=== PATIENT | female | born 1955 | race Caucasian/White ===

== ENCOUNTER 2025-01-03 11:55 | Emergency (ER) | payer MEDICARE, OTHER, SELFPAY ==
--- OUTSIDE RECORDS SUMMARY | 2025-01-03 11:58 | XMS_ITS | Encounter Summary ---
Author Organization [place] Address [address] [place] [address] Care Team Providers Care Spinning Lathe Operator Automatic Name Role Phone Katy Hill MD Primary Care Provider [phone]- [phone] Maldonado Krueger MD Unavailable Kamila Ewing MD Unavai lable Encounter Details Date Type Department Care Team (Late st Contact Info) Description 09/30/2023 [facility] Medical Advice [address] [address] Arcelia Smallwood, RN Social History Tobacco Use Types Packs/Day Years Used Date Smoking Tobacco: Never Smokeless Tobacco: Never Alcohol Use Standard Drinks/Week Comments Not Asked 0 (1 standard drink = 0.6 oz pur e alcohol) PHQ-2 Answer Date Recorded PHQ-2 Score 1 01/08/2023 Adolescent Education Answer Date Record ed Getting School Help Needed Not on file 08/05 Comments No Sex and Gender Information Value Date Recorded Sex Assigned at Not on file 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 Gender Identity Not on file Sexual Orientation Not on file documented as of this encounter Plan of Treatment Not on file documented as of this encounter Visit Diagnoses Not on filedocumented in this encounter Care Teams Spinning Lathe Operator Automatic Relationship Specialty Start Date End Date Katy Hill MD [address] [place] [address] PCP - General Family Medicine 12/04/22 Maldonado Krueger MD [address] [facility] [address] [place] [address] Assigned Heart and Vascular Provider 01/16/23 07/23/24 Kamila Ewing MD [address] [place], [place] [address] Assigned Sleep Provider 04/24/2310/22 documented as of this encounter
--- OUTSIDE RECORDS SUMMARY | 2025-01-03 11:58 | XMS_ITS | Encounter Summary ---
Author Organization [place] Address [address] [facility] 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 Gender Identity Not on file Sexual Orientation Not on file documented as of this encounter Plan of Treatment Not on file documented as of this encounter Visit Diagnoses Not on filedocumented in this encounter Care Teams Rod Buster Relationship Specialty Start Date End Date Katy Hill MD [address] [place] [address] PCP - General Family Medicine 12/04/22 Maldonado Krueger MD [address] [place], [place] [address] Assigned Heart and Vascular Provider 01/16/23 07/23/24 Kamila Ewing MD [address] [place], [place] [address] Assigned Sleep Provider 04/24/2310/22 documented as of this encounter
--- OUTSIDE RECORDS SUMMARY | 2025-01-03 11:58 | XMS_ITS ---
Author Organization [facility] Address [address] [place] [address] Care Team Providers Care Lodging House Keeper Name Role Phone Liz Katy Primary Care Provider [phone] None, No PCP Unavailable Unavailable Yola Ornelas [phone] Allergies Allergen (clinical drug ingredient) Drug/Non Drug Allergy documented on EMR Reaction Allergy Type Onset Date Status Substance with sulfonamide structure and antibacterial mechanism of action (substance) Sulfa Antibiotics rash Drug Allergy Active REASON FOR VISIT Bladder 1 year f/u, Concerns: incontinence, NG, MA Medications Medication SIG (Take, Route, Frequency, Duration) Notes Start Date End Date Status Accu-Chek Guide - as directed In Vitro once daily for 90 days dx E11.9 04/11/2024 Active Amoxicillin-Pot Clavulanate 875-125 MG 1 tablet Orally every 12 hrs for 10 days 04/11/2024 Active Blood Glucose Test - as directed In Vitro for 90 days 02/11/2024 Active Lancet Device - as directed for 90 days Active Cholecalciferol Acti ve Mirtazapine 45 MG 1 tablet at bedtime Orally Once a day Active Folic Acid Active Aspirin 81 MG 1 tablet Orally Once a day Active lamoTRIgine 200 MG 1 tablet Orally Once a day Active buPROPion HCl taking 300 mg per day and 150 mg per day Active Fish Oil 1200 MG 1 capsule Orally Once a day Active Alive Multi-Vitamin - as directed Orally Active Vyzulta 0.024 % 1 drop into affected eye in the evening Ophthalmic Once a day Active Blood Pressure Monitoring Soln - as directed 11/24/2022 Active DULoxetine HCl 60 MG 1 capsule Orally Twice a day takes 2 Active Trospium Chloride ER 60 MG 1 capsule in the morning on an empty stomach or 1 hour before a meal Orally Once a day for 90 days 10/26/2024 Active Benzonatate 100 MG 1 capsule as needed Orally Three times a day 01/11/2024 Active Lisinopril 10 MG TAKE 1 TABLET BY MOUTH EVERY DAY for 90 days Active Atorvastatin Calcium 80 MG 1 tablet Orally Once a day for 90 days Active metFORMIN HCl 1000 MG 1 tablet with a meal Orally Twice daily for 90 days Active Accu-Chek FastClix Lancets - as directed once daily for 90 days dx E11.9 04/11/2024 Active Myrbetriq 50 MG 1 tablet Orally Once a day for 90 days Active Gemtesa 75 MG 1 tablet Orally Once a day for 90 days 12/08/2024 Active Cefdinir 300 MG 1 tab Orally twice daily for 7 days 04/17/2024 Active Social History Tobacco Use: Social History Observation Description Date Details (start date - stop date) Never Smoker NA - NA Sex Assigned At : Social History Observation Description Sex Assigned At Female Tobacco Use/Smoking Question Answer Notes Are you a nonsmoker Tobacco use other than smoking: Question Answer Notes Are you an other tobacco user? No Vital Signs Blood pressure systolic 118 mm Hg 12/08/19 25 Blood pressure diastolic 76 mm Hg 025 Height 68 in 12/08/2024 Weight 236.8 lbs 12/08/2024 BMI 36 kg/m2 12/08/2024 Encounters Encounter Location Date Provider Diagnosis [facility] [address] [place] [address] 12/08/2024 Yola Ornelas Urge incontinence N39.41 Assessments Encounter Date Diagnosis (ICD Code) Assessment Notes Treatment Notes Treatment Clinical Notes Section Notes 12/08/2024 Urge incontinence (ICD-10 - N39.41) She has reported that her leakage has been slightly worsened since last appointment. Still reports significant improvement from initial consult (was soaking through clothing and adult brief/towel/chux on bed at night). Plan is to switch to Gemtesa. If Gemtesa is too expensive patient will continue Myrbetriq and Tropsium. She understands she cannot take Gemtesa and Myrbetriq together. We discussed PTNS and Interstim today. Provided detailed instruction on both of these modalities. Patient was provided with handouts and encouraged to watch [facility] patient education videos on Interstim. Patient is not interested at this time. Creatinine drawn today for shelter drug therapy monitoring. Plan based on result. If she starts Gemtesa she will follow up in 6 weeks. If Gemtesa is too expensive she will follo wup in 1 year. 12/08/2024 Other Time spent on patient care including - review of previous records - preparation for visit - ordering medications, labs or imaging - documenting visit - discussion of care with another health animal care taker if indicated - direct face to face time with patient including obtaining relevant history, physical exam and discussion of plan of care Total time was 40 minutes spent including some or all of above listed required for care of patient talking about diagnosis, treatment and plan of care with the patient as listed in the treatment portion of the note, Vibegron material was printed Plan Of Treatment Medication Medication Name Sig Start Date Stop Date Notes Trospium Chloride ER 60 MG 1 capsule in the morning on an empty stomach or 1 hour before a meal Orally Once a day for 90 days 10/26/2024 Myrbetriq 50 MG 1 tablet Orally Once a day for 90 days Gemtesa 75 MG 1 tablet Orally Once a day for 90 days 12/08/2024 Treatment Notes Assessment Notes Urge incontinence She has reported that her leakage has been slightly worsened since last appointment. Still reports significant improvement from initial consult (was soaking through clothing and adult brief/towel/chux on bed at night). Plan is to switch to Gemtesa. If Gemtesa is too expensive patient will continue Myrbetriq and Tropsium. She understands she cannot take Gemtesa and Myrbetriq together. We discussed PTNS and Interstim today. Provided detailed instruction on both of these modalities. Patient was provided with handouts and encouraged to watch [facility] patient education videos on Interstim. Patient is not interested at this time. Creatinine drawn today for shelter drug therapy monitoring. Plan based on result. If she starts Gemtesa she will follow up in 6 weeks. If Gemtesa is too expensive she will follo wup in 1 year. Other Time spent on patient care including - review of previous records - preparation for visit - ordering medications, labs or imaging - documenting visit - discussion of care with another health animal care taker if indicated - direct face to face time with patient including obtaining relevant history, physical exam and discussion of plan of care Total time was 40 minutes spent including some or all of above listed required for care of patient talking about diagnosis, treatment and plan of care with the patient as listed in the treatment portion of the note, Vibegron material was printed Next Appt Details Follow Up: 6 Weeks, Reason: Provider Name:Yola Ornelas, Chandni 12/12/2025 11:00:00 AM, [address] [facility], [place], [address], Progress Notes * Jo CAPONEJulietaOB:1 12/17/1954 (69 yo F)Acc No.[id number]:12/08/2024 Patient: Wilber BLANCO SUKHJasmin Provider: Chandni Ornelas DNP :1955 A ge:69 Y S ex:Female Date:12/08/2024 Address:[address] [place], [place] [address] Pcp:Katy Hill Subjective: * Chief Complaints: * 1 . Bladder 1 year f/u. 2. Concerns: incontinence. 3. MARY RENEE. * HPI: * General: Jasmin is a pleasant 67 year old female who presents today for urge urinary incontinence follow-up. Current bladder medications are Tropsium and Myrbetriq. Patient reports she has had satisfactory improvement with both medications. She will still experience urge urinary incontinence daily. Leakage amount and frequency is significantly reduced. * ROS: U rinary: Urge urinary incontinence A dmits. S tress urinary incontinence A dmits. U rinary urgency A dmits. U rinary frequency Denies. U rinary hesitancy Denies. F eeling of incomplete bladder emptying Denies. P ain with full bladder Denies. P ad use A dmits. N umber of UTIs in the past year Denies. N umber of UUI Leaks per day 0 -1. N umber of MATHEUS leaks per day 1 time a month. N umber of voids during waking hours: 4 -6. N umber of voids at night: 1 -2.? * Medical History: H yperlipemia, Glaucoma, Hypertensionaucoma, Depression/Anxiety, Arthritis, Bladder infections, Kidney infections, Diabetes Type 2-No insulin. 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 B irth Control: H ysterectomy. S exual Activity N ot currently sexually active. M enopause A t age>46 had total hysterectomy. A bnormal Pap Smear N ever Had One. D enies H/O Colposcopy. B ladder Infections H ad a bladder infection this summer, hasn't had one in some time. C olonoscopy C olonoscopy L ast pap smear date: L ast Pap L ast mammogram date: M ammogram Date B one Density . * OB History: G PAL: G 1P0. P regnancy # 1: 1 994, normal spontaneous vaginal delivery (), Female, 7lb. * Surgical History: T MARICHUY unsure if she has her tubes or ovaries 1999, Tonsilectomy 1959. * Family History: M other: . F ather: , diagnosed with Heart Disease. M aternal Grand Mother: diagnosed with Diabetes. S iblings: diagnosed with Diabetes. D aughter(s): diagnosed with Diabetes. 1 daughter(s) . . Daughter: Diabetes, PCOS Mother: from melanoma of the liver. * Social History: T obacco Use: T obacco Use/Smoking A re you a n onsmoker Tobacco use other than smoking A re you an other tobacco user? N o D rugs/Alcohol: D rugs H ave you used drugs other than those for medical reasons in the past 12 months? N o Caffeine I ntake: 1 -2 cups per day Everyday, soda Do you drink alcohol?: Ocassionally, 2-3 drinks per month. M iscellaneous: E xercise: none. * Medications: T aking metFORMIN HCl 1000 MG Tablet 1 tablet with a meal Orally Twice daily , Taking Lisinopril 10 MG Tablet TAKE 1 TABLET BY MOUTH EVERY DAY , Taking Atorvastatin Calcium 80 MG Tablet 1 tablet Orally Once a day , Taking Benzonatate 100 MG Capsule 1 capsule as needed Orally Three times a day , Taking Myrbetriq 50 MG Tablet Extended Release 24 Hour 1 tablet Orally Once a day , Taking Blood Pressure Monitoring Soln - Kit as directed , Taking DULoxetine HCl 60 MG Capsule Delayed Release Particles 1 capsule Orally Twice a day , Notes to Pharmacist: takes 2, Taking Vyzulta 0.024 % Solution 1 drop into affected eye in the evening Ophthalmic Once a day , Taking Fish Oil 1200 MG Capsule 1 capsule Orally Once a day , Taking Alive Multi-Vitamin - Tablet Chewable as directed Orally , Taking lamoTRIgine 200 MG Tablet 1 tablet Orally Once a day , Taking buPROPion HCl , Notes to Pharmacist: taking 300 mg per day and 150 mg per day, Taking Folic Acid , Taking Aspirin 81 MG Tablet Chewable 1 tablet Orally Once a day , Taking Mirtazapine 45 MG Tablet 1 tablet at bedtime Orally Once a day , Taking Cholecalciferol , Taking Blood Glucose Test - Strip as directed In Vitro , Taking Lancet Device - Miscellaneous as directed , Taking Amoxicillin-Pot Clavulanate 875-125 MG Tablet 1 tablet Orally every 12 hrs , Taking Accu-Chek Guide - Strip as directed In Vitro once daily dx E11.9, Taking Accu-Chek FastClix Lancets - Miscellaneous as directed once daily dx E11.9, Taking Cefdinir 300 MG Capsule 1 tab Orally twice daily , Taking Trospium Chloride ER 60 MG Capsule Extended Release 24 Hour 1 capsule in the morning on an empty stomach or 1 hour before a meal Orally Once a day , Medication List reviewed and reconciled with the patient * Allergies: S ulfa Antibiotics: rash - Allergy. Objective: * Vitals: H t: 68 in, Wt:236.8lbs, BP:118/76mm Hg, BMI:36Index. * Examination: * General Examination: GENERAL APPEARANCE: i n no acute distress, well developed, well nourished. PSYCH: a lert, oriented, judgement and insight good, mood/affect full range, speech clear. Assessment: * Assessment: 1. U rge incontinence - N39.41 (Primary) Plan: * Treatment: 2. O thers Notes: Time spent on patient care including - review of previous records - preparation for visit - ordering medications, labs or imaging - documenting visit - discussion of care with another health animal care taker if indicated - direct face to face time with patient including obtaining relevant history, physical exam and discussion of plan of care Total time was 40 minutes spent including some or all of above listed required for care of patient talking about diagnosis, treatment and plan of care with the patient as listed in the treatment portion of the note, Vibegron material was printed * Preventive Medicine: YOUR PREVENTIVE WELLNESS PLAN: B reast Cancer Screening (Mammogram): My last mammogram was done on: 0 03/01/2022 Negative C ervical Cancer Screening (Pap Smear): My last Pap smear was done on: 0 11/01/1999 Had hysterectomy for a benign lump O steoporosis Screening (Bone Density Measurement): My last bone density was done on: 0 11/01/2019 Normal C olorectal Cancer Screening: Last Done Colonoscopy 0 11/01/2017 Polyps, Repeat: 5yrs D epression Screening: Screening for depression was last done on: 0 07/29/2022 * Follow Up: 6 Weeks * Images: Billing Information: * Visit Code: 56077 Office Visit, Est Pt., Level 5. * Procedure Codes: * DENT ATHLETIC TRAINER Sign off status: Completed true * Provider: Chandni Ornelas DNP Date: 0 12/08/2024 Generated for Albert renee/Farrah/Jeramieitting on: 0 01/03/2025 11:58 AM RESIDENT ATHLETIC TRAINER History and Physical Notes * Examination Category Sub-Category Detail Notes Category Not es *General Examination GENERAL APPEARANCE: in no a cute distress, well developed, well nourished PSYCH: alert, oriented, kemal gement and insight good, mood/affect full range, speech clear
--- OUTSIDE RECORDS SUMMARY | 2025-01-03 11:59 | XMS_ITS ---
Author Organization [facility] Address [address] [place] [address] Care Team Providers Care Driver Messenger Name Role Phone Hill, Katy Primary Care Provider None, No PCP Unavailable Yola Kan [phone] REASON FOR VISIT 12/26 Scheduled Social History Sex Assigned At : Social History Observation Description Sex Assigned At Female Encounters Encounter Location Date Provider Diagnosis [facility] [address] [place] [address] 12/22/2024 Yola Ornelas Plan Of Treatment Next Appt Details Provider Name:Yola Ornelas, 0 12/12/2025 11:00:00 AM, [address] [place], [address], Progress Notes * Lu CAPONEOB:1 12/17/1954 (69 yo F)Acc No.[id number]:12/22/2024 Patient: Wilber ROJOJasmin BEASLEY :1955 A ge:69 Y S ex:Female Address:[address] [place] [address], [address] * true * Date: Generated for Printi ng/Faxing/eTransmitting on: 0 01/03/2025 11:59 AM HYPO DIPPER
--- OUTSIDE RECORDS SUMMARY | 2025-01-03 11:59 | XMS_ITS | Clinical Summary ---
Author Organization [facility] Address [facility] [place] [address] Care Team Providers Care Marketing Communications Coordinator Name Role Phone Ade Louise AQUACULTURE DIRECTOR Unavailable [phone] [facility] Primary Care Provid er Allergies Active Allergy Reactions Criticality Noted Date Comments Sulfa (Sulfonamide Antibiotics) Hives 12/03 Medications ORDER - MEDICATION ORDER COMPOSER She needs a goose-neck lamp with full-spectrum 1 unit 0 2009 Active Fish Oil-DHA-EPA (FISH OIL) 1,200-144-216 mg cap Take 1 capsule by mouth. 0 2016 Active buPROPion (WELLBUTRIN XL) 300 mg Extended-Release tablet Take one tablet daily 0 2017 Active buPROPion (WELLBUTRIN XL) 150 mg Extended-Release tablet 1 tablet daily by mouth 0 2017 Active cholecalciferol (VITAMIN D-3) 2,000 unit capsuleIndications:Vit lu D deficiency Take 1 capsule by mouth once daily. 0 2017 Active blood-glucose meterIndications:Type 2 diabetes mellitus without complication, without long-term current use of insulin (HC) With strips/soluti on/lancets 1 Device 2018 Active ACCU-CHEK FASTCLIX LANCET DRUMIndications:Type 2 diabetes mellitus without complication, without long-term current use of insulin (HC) USE DIRECTED EVERY DAY 100 Each 3 2018 Active mirtazapine (REMERON) 45 mg tabletIndications:Depr ession, major, in remission Take 1 tablet by mouth at bedtime. 30 tablet 2019 Active DULoxetine (CYMBALTA) 60 mg Delayed-release capsuleIndications:Dep ression, major, in remission 2 po q day 60 capsule 1 2019 Active folic acid 1 mg tablet Take 1 mg by mouth 2 times daily. 2021 Active clonazePAM (KLONOPIN) 0.5 mg tablet TAKE 1 TABLET BY MOUTH EVERY DAY NEEDED FOR SEVERE ANXIETY 2021 Active trospium 60 mg Extended-Release capsule TAKE 1 CAPSULE BY MOUTH EVERY DAY IN THE MORNING 1 HOUR BEFORE A MEAL ON AN EMPTY STOMACH 2021 Active mirabegron EXTENDED-release (Myrbetriq) 50 mg tablet 1 tablet Orally Once a day for 30 days 2021 Active fluconazole (Diflucan) 200 mg tabletIndications:Onyc homycosis Take 1 Tablet (200 mg) by mouth once weekly. 5 Tablet 2 2023 Active atorvastatin (LIPITOR) 80 mg tabletIndications:Type 2 diabetes mellitus without complication, without long-term current use of insulin (HC),Pure hypercholesterolemia Take 1 Tablet (80 mg) by mouth at bedtime. For Cholesterol. 90 Tablet 2 2024 Active blood sugar diagnostic (Blood Glucose Test) stripIndications:Type 2 diabetes mellitus without complication, without long-term current use of insulin (HC) Dispense item covered by pt ins. E11.9 NIDDM type II - Test 1 time/day 100 Each 2 2024 Active lisinopriL (PRINIVIL; ZESTRIL) 10 mg tabletIndications:Prim papo hypertension Take 1 Tablet (10 mg) by mouth once daily. For blood pressure. 90 Tablet 2 2024 Active metFORMIN (GLUCOPHAGE) 1,000 mg tabletIndications:Type 2 diabetes mellitus without complication, without long-term current use of insulin (HC) Take 1 Tablet (1,000 mg) by mouth two times daily with meals. 180 Tablet 2 2024 Active Additional Information Patient taking differently:1,000 mg Oral TWICE DAILY WITH MEALS,Patient checked for extended release and her Rx did not state XR, Reported on 12/27/2024 lamoTRIgine 200 mg tablet Take 1 Tablet (200 mg) by mouth once daily. Take one tablet once daily 2024 Active Vyzulta 0.024 % dropIndications:Low-te nsion glaucoma of left eye, mild stage PLACE 1 DROP ON LEFT EYE EVERY EVENING 7.5 mL 1 2024 Active fluticasone (50 mcg per actuation) nasal solution (FLONASE) SPRAY TWICE IN EACH NOSTRIL ONCE TO TWICE DAILY 2023 Active latanoprostene bunod (Vyzulta) 0.024 % dropIndications:Low-te nsion glaucoma of left eye, mild stage Place into left eye. 7.5 mL 1 12/07 Discontinued Active Problems Problem Noted Date Diagnosed Date Normal tension glaucoma of left eye, moderate st age 0402/23/2022 Bilateral pseudophakia 11/16/2018 Adenomatous colon polyp 11/03/2017 Overview (11/03/2017): Colonoscopy 11/2017 polyps, repeat in 5 years Presbyopia 08/26/2017 Hyperopic astigmatism of left eye 08/26/2017 Regular astigmatism of right eye 08/26/2017 Arthritis of right knee 07/21/2015 Overview (07/21/2015): Right knee pain, cortisone by Dr. Meade Jul 2015. 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 Stopped the actos due to health risks associated with medication Nov 2024: on Metformin only. Vitreous degeneration 10/07/2007 Pure hypercholesterolemia 06/17/2007 ALLERGY UNSPECIFIED 04/02/2005 DEPRESSION 07/23/2003 Overview (12/31/2021): Overview: Depressive Disorder, Not Elsewhere Classified Depressive disorder, not elsewhere classified ACTINIC - KERATOSIS Resolved Problems Problem Noted Date Diagnosed Date Resolved Date Major depressive disorder, r ecurrent episode, moderate 10/07/2012 12/13/2012 Major depressive disorder, r ecurrent episode, severe, without mention of psychotic behavior 09/27/2012 10/07/2012 Major depressive disorder, r ecurrent episode, severe, without mention of psychotic behavior 09/08/2012 10/07/2012 Major depressive disorder, r ecurrent episode, unspecified 05/18/2007 10/07/2012 SINUSITIS 09/16/2004 10/30/2010 Encounters Date Type Department Care Team Description 01/03/2025 Nurse Triage [facility] Centralized Nurse Triage Clinic, [facility] Head Injury 12/28/2024 1:30 PM THERMAL CUTTING TRACER MACHINE OPERATOR - 12/28/2024 11:59 PM THERMAL CUTTING TRACER MACHINE OPERATOR Hospital Encounter [facility] [place] [address] [place] [address] Zander Meade MD Martinez, Nathan M, PT 12/27/2024 6:25 PM THERMAL CUTTING TRACER MACHINE OPERATOR Office Visit [facility] [place] [address] [place] [phone] Latisha Lang MD Head Injury 12/27/2024 Travel 12/19/2024 1:20 PM THERMAL CUTTING TRACER MACHINE OPERATOR - 12/19/2024 11:59 PM THERMAL CUTTING TRACER MACHINE OPERATOR Hospital Encounter [facility] [place] [address] [place] [address] Zander Meade MD Martinez, Nathan M, PT 12/19/2024 Travel 12/13/2024 3:29 PM THERMAL CUTTING TRACER MACHINE OPERATOR - 12/13/2024 11:59 PM THERMAL CUTTING TRACER MACHINE OPERATOR Hospital Encounter [facility] [place] [address] [place] [address] Zander Meade MD Martinez, Nathan M, PT 12/13/2024 Travel 12/05/2024 1:10 PM THERMAL CUTTING TRACER MACHINE OPERATOR - 12/05/2024 11:59 PM THERMAL CUTTING TRACER MACHINE OPERATOR Hospital Encounter [facility] [place] [id number] [place] [phone] Zander Meade MD Martinez, Nathan M, PT Chronic pain of left knee 12/05/2024 Refill [facility] [address] [place] [address] Hans Rojo, OD Refill Request (Vyzulta) 12/05/2024 Travel 12/02/2024 4:15 PM THERMAL CUTTING TRACER MACHINE OPERATOR Ancillary Procedure [facility] [id number] [place] [phone] 12/02/2024 Travel 11/27/2024 4:00 PM THERMAL CUTTING TRACER MACHINE OPERATOR Ancillary Procedure [facility] [address] [place] [address] 11/27/2024 3:30 PM THERMAL CUTTING TRACER MACHINE OPERATOR Office Visit [facility] [address] [place] [address] Zander Meade MD Musculoskeletal Problem (Follow-up LEFT Knee Injury DOI: 09/26/2024/Review X-Ray) 11/27/2024 Travel 11/16/2024 1:00 PM THERMAL CUTTING TRACER MACHINE OPERATOR Office Visit [facility] [address] [place] [address] Hans Rojo, OD Follow Up (4 Month IOP Ck) 11/16/2024 Travel 11/08/2024 11:00 AM THERMAL CUTTING TRACER MACHINE OPERATOR Procedure Only [facility] [address] [place] [address] Testing (Visual field and results) 11/08/2024 Travel 11/03/2024 1:00 PM THERMAL CUTTING TRACER MACHINE OPERATOR Office Visit [facility] [address] [place] [address] Zander Meade MD Establish Care (Establish Care with Dr Zander Meade) 11/03/2024 Travel 10/17/2024 11:30 AM THERMAL CUTTING TRACER MACHINE OPERATOR Office Visit [facility] [address] [place] [address] Arcelia Ha, DPM Foot Problem (F/U bilateral toenail fungus-some improvement) 10/17/2024 Travel from Last 3 Months Immunizations Name Administration Dates Next Due COVID-19 vaccine (Moderna Gagan jan 50mcg/0.25mL) PF, MDV 03/20/2022,09/15/2021 Influenza, High-dose Quadrivalent Inactivated ,07/07/2022 Influenza, IIV3 (Age >=3 years) 08/04/2013,08/31 Influenza, IIV4 08/11/2017,09/02/2016 Influenza, IIV4 (=>6mos) MDV 08/12/2018 Influenza, Inactivated AIIV4 (Age 65+ Years) Preserv Free 08/08/2021,08/12/2020 Influenza, Inactivated IIV3 (Age 65+ Years) Preserv Free 10/17/2019 Influenza, RIV3 (Age =>18 Years) 07/19/2015 Pneumococcal Poly,23-Valent (Pneumovax) 08/12/20 20 Pneumococcal conj 13-Valent (Prevnar 13) 019 Td (Age >=7 Years) 09/18/2004,07/23/2003 Tdap 06/30/2013 Zoster (Shingrix-RZV, recombinant) 08/03/2022, Family History Medical History Relation Name Comments Diabetes Daughter Heart Disease Father Heart Disease Maternal Grandfather Diabetes Maternal Grandmother Melanoma Mother of melanom a of Liver Genetic Other MGM: DM~PGM: DM ~Father: NH in mid 40s first dx, dec in 60s~Mother: melanoma dec in 50s of metastatic dz/MGM: DM~PGM: DM~Father: NH in mid 40s first dx, dec in 60s~Mother: melanoma dec in 50s of metastatic dz~no family hx of problmes with anesthesia Diabetes Paternal Grandmother Diabetes Sister Relation Name Status Comments Daughter Alive Father Maternal Grandfather Maternal Grandmother Mother Other Paternal Grandfather Paternal Grandmother Sister Alive Social History Tobacco Use Types Packs/Day Years Used Date Smoking Tobacco: Never Smokeless Tobacco: Never Tobacco Cessation:Counseling Given: Yes Alcohol Use Standard Drinks/Week Comments Yes 0 (1 standard drink = 0.6 oz pur e alcohol) occasional PHQ-2 Answer Date Recorded PHQ-2 TOTAL SCORE 0 11/03/2024 Social Connections Answer Date Recorded Do you often feel lonely or isolated from those around you? 0 11/03/2024 Financial Resource Strain Answer Date R ecorded Difficulty of Paying Living Expenses 3 11/03/2024 Difficulty of Paying Living Expenses Not on file 11/03/2024 Food Insecurity Answer Date Recorded Do you worry your food will run out before you are able to buy more? 1 11/03/2024 Transportation Needs Answer Date Record ed Does lack of transportation keep you from medica l appointments? 1 11/03/2024 Does lack of transportation keep you from work, meetings or getting things that you need? 1 11/03/2024 Housing Stability Answer Date Recorded What is your housing situation today? 1 11/03/2024 Utilities Answer Date Recorded Do you have trouble paying f or utilities (for example, heat, electricity, water, phone)? 1 11/03/2024 Comments No Sex and Gender Information Value Date Recorded Sex Assigned at Not on file Legal Sex Female 5:29 AM THERMAL CUTTING TRACER MACHINE OPERATOR Gender Identity Not on file Sexual Orientation Not on file Obstetrics History Last Filed Vital Signs Vital Sign Reading Time Taken Comments Blood Pressure 135/69 12/27/2024 6:27 PM THERMAL CUTTING TRACER MACHINE OPERATOR Pulse 78 12/27/2024 6:27 PM THERMAL CUTTING TRACER MACHINE OPERATOR Temperature 36.6 C (97.9 F) 12/27/2024 6:27 PM THERMAL CUTTING TRACER MACHINE OPERATOR Respiratory Rate 14 12/27/2024 6:27 PM THERMAL CUTTING TRACER MACHINE OPERATOR Oxygen Saturation 97% 12/27/2024 6:27 PM THERMAL CUTTING TRACER MACHINE OPERATOR Inhaled Oxygen Concentration - - Weight 108.1 kg (238 lb 6.4 oz) 11/03/2024 1:07 PM THERMAL CUTTING TRACER MACHINE OPERATOR Height 172.7 cm (5' 8) 11/03/2024 1:07 PM THERMAL CUTTING TRACER MACHINE OPERATOR Body Mass Index 36.25 11/03/2024 1:07 PM THERMAL CUTTING TRACER MACHINE OPERATOR Plan of Treatment Upcoming Encounters Date Type Department Care Team (Late st Contact Info) Description 01/10/2025 12:45 PM CDT Appointment [facility] [place] [address] [place], [place] [phone] [place] [address] [place], [place] [phone] 01/16/2025 11:30 AM CDT Office Visit [facility] [address] [place] [phone] Arcelia Ha, DPM [address] [place] [address] 01/17/2025 12:45 PM CDT Appointment [facility] [place] [address] [place], [place] [phone] [place] [address] [place] [address] 01/24/2025 12:45 PM CDT Appointment [facility] [place] [address] [place], [place] [phone] [place] [address] [place] [phone] 02/01/2025 11:10 AM CDT Office Visit [facility] [address] [place] [address] Zander Meade MD [address] [place] [address] 03/15/2025 1:00 PM CDT Office Visit [facility] [address] [place] [address] [place] [address] [place] [address] Health Maintenance Due Date Last Done Comments RSV vaccine for adults or (1 - Risk 60-74 years 1-dose series) 2013 Colonoscopy through age 75 11/02/202211/02, 11/02/2017, 11/02/2017 Medicare Wellness for age 65+ 03/26/2023 03/25/2022, 10/17/2019 Mammogram for age 45-75 05/05/2023 05/05/20, 09/18/2019, 04/23/2017, Additional history exists Tetanus booster 06/30/2023 06/30/2013, 09/01, 07/23/2003 COVID-19 vaccine series ( season) 2024 08/10/2023, 07/09/2022, 03/20/2022, Additional history exists Influenza for age 65+ 07/02/2024 08/10/2023 , 07/07/2022, 08/08/2021, Additional history exists BMI (ht and wt on same day) for age 18+ 11/03/2025 11/03/2024, 03/25/2022, 10/17/2019, Additional history exists Depression screening for age 12+ 11/03/2025 11/03/2024, 03/25/2022, 08/12/2020, Additional history exists Lipids for age 45-75 09/22/2026 09/22/2021, 11/29/2020, 08/12/2020, Additional history exists Tdap Completed 06/30/2013 Hepatitis C screening for ag e 18-79 Completed 06/16/2019 DEXA/DXA scan for age 65+ Completed 09/12/2019 Pneumococcal series for age 50+ Completed , 06/16/2019 Zoster (shingles) series for age 50+ Completed 08/03/2022, 03/20/2022 Procedures Procedure Name Priority Date/Time Associated Diagnosis Comments MR HEAD BRAIN ORBITS WWO Routine 12/02/2024 5:01 PM THERMAL CUTTING TRACER MACHINE OPERATOR Visual field defect of left eye XR KNEE 3 VIEWS LEFT Routine 11/27/2024 3:46 PM THERMAL CUTTING TRACER MACHINE OPERATOR Chronic pain of left knee XR MAMMO BILAT SCREENING Routine 05/05/2022 1:03 PM CDT Visit for screening mammogram LIPID PANEL Routine 09/22/2021 11:59 AM THERMAL CUTTING TRACER MACHINE OPERATOR Pure hypercholesterolemia XR DXA BONE DENSITY 2 SITES AXIAL Routine 09/12/2019 1:38 PM THERMAL CUTTING TRACER MACHINE OPERATOR Post-menopausal ANTI HCV Routine 06/16/2019 1:20 PM CDT Encounter for hepatitis C screening test for low risk patient COLONOSCOPY 11/02/2017 12:49 PM THERMAL CUTTING TRACER MACHINE OPERATOR from Last 3 Months or Most Recently Relevant to Health Maintenance Results * MR HEAD BRAIN ORBITS WWO (12/02/2024 5:01 PM THERMAL CUTTING TRACER MACHINE OPERATOR) Anatomical Region Laterality Modality HEAD Magnetic Resonan ce 12/02/2024 5:01 PM THERMAL CUTTING TRACER MACHINE OPERATOR Impressions 12/04/2024 9:27 AM THERMAL CUTTING TRACER MACHINE OPERATOR HEAD MRI: 1. No significant change since 12/12/2012. No findings to explain patient's symptoms or acute intracranial pathology. 2. Stable mild chronic small vessel ischemic disease and generalized brain parenchymal volume loss. ORBIT MRI: 1. Normal MRI of the orbits. Narrative 12/04/2024 9:27 AM THERMAL CUTTING TRACER MACHINE OPERATOR For Patients: As a result of the Century Cures Act, medical imaging exams and procedure reports are released immediately into your electronic medical record. You may view this report before your referring provider. If you have questions, please contact your health care provider. EXAM: MR HEAD BRAIN ORBITS WWO LOCATION: [facility] [place] [facility] DATE: 12/02/2024 INDICATION: Visual Field Defect Of Left Eye COMPARISON: Brain MRI 12/12/2012 CONTRAST: Clariscan 20ml TECHNIQUE: 1) Routine multiplanar multisequence head MRI without and with intravenous contrast. 2) Dedicated high-resolution multiplanar multisequence MRI of the orbits without and with intravenous contrast. FINDINGS: INTRACRANIAL CONTENTS: No acute or subacute infarct. No mass, acute hemorrhage, or extra-axial fluid collections. Scattered nonspecific T2/FLAIR hyperintensities within the cerebral white matter most consistent with mild chronic microvascular ischemic change. Chronic lacunar infarct in the head of the left caudate nucleus. Mild generalized cerebral atrophy. No hydrocephalus. The cerebellar tonsils extend up to 6 mm below the level the foramen magnum and demonstrate slight peg-shaped morphology, consistent with a Chiari I malformation, unchanged since 12/12/2012. No pathologic contrast enhancement. SELLA: No abnormality accounting for technique. OSSEOUS STRUCTURES/SOFT TISSUES: Normal marrow signal. The major intracranial vascular flow voids are maintained. ORBITS: Dedicated MRI of the orbits was performed. Bilateral pseudophakia. Normal morphology of the globes. Symmetrical extraocular musculature without thickening/enlargement. The intraorbital, canalicular and prechiasmatic optic nerve segments are normal in size and signal intensity bilaterally. The optic chiasm and proximal optic tracts are unremarkable. No localized inflammation of the intraconal or extraconal orbital fat. Normal lacrimal glands. No intraorbital mass or pathologic intraorbital enhancement. SINUSES/MASTOIDS: Mild mucosal thickening scattered about the paranasal sinuses. No middle ear or mastoid effusion. Procedure Note Toni Izquierdo MD - 12/04/2024 For Patients: As a result of the 21st Century Cures Act, medical imagingexams and procedure reports are released immediately into your electronicmedical record. You may view this report before your referring provider.If you have questions, please contact your health care provider. EXAM: MR HEAD BRAIN ORBITS [facility] LOCATION: [facility] [place] DATE: 12/02/2024 INDICATION: Visual Field Defect Of Left Eye COMPARISON: Brain MRI 12/12/2012 CONTRAST: Clariscan 20ml TECHNIQUE: 1) Routine multiplanar multisequence head MRI without and with intravenouscontrast. 2) Dedicated high-resolution multiplanar multisequence MRI of the orbitswithout and with intravenous contrast. FINDINGS: INTRACRANIAL CONTENTS: No acute or subacute infarct. No mass, acutehemorrhage, or extra-axial fluid collections. Scattered nonspecificT2/FLAIR hyperintensities within the cerebral white matter most consistentwith mild chronic microvascular ischemic change. Chronic lacunar infarctin the head of the left caudate nucleus. Mild generalized cerebralatrophy. No hydrocephalus. The cerebellar tonsils extend up to 6 mm belowthe level the foramen magnum and demonstrate slight peg-shaped morphology,consistent with a Chiari I malformation, unchanged since 12/12/2012. Nopathologic contrast enhancement. SELLA: No abnormality accounting for technique. OSSEOUS STRUCTURES/SOFT TISSUES: Normal marrow signal. The majorintracranial vascular flow voids are maintained. ORBITS: Dedicated MRI of the orbits was performed. Bilateral pseudophakia.Normal morphology of the globes. Symmetrical extraocular musculaturewithout thickening/enlargement. The intraorbital, canalicular andprechiasmatic optic nerve segments are normal in size and signal intensitybilaterally. The optic chiasm and proximal optic tracts are unremarkable.No localized inflammation of the intraconal or extraconal orbital fat.Normal lacrimal glands. No intraorbital mass or pathologic intraorbitalenhancement. SINUSES/MASTOIDS: Mild mucosal thickening scattered about the paranasalsinuses. No middle ear or mastoid effusion. IMPRESSION: HEAD MRI: 1. No significant change since 12/12/2012. No findings to explainpatient's symptoms or acute intracranial pathology. 2. Stable mild chronic small vessel ischemic disease and generalizedbrain parenchymal volume loss. ORBIT MRI: 1. Normal MRI of the orbits. us Hans Darline Rojo OD MR Final Resu lt * XR KNEE 3 VIEWS LEFT (11/27/2024 3:46 PM THERMAL CUTTING TRACER MACHINE OPERATOR) Anatomical Region Laterality Modality KNEES, KNEE L Computed Radiogr aphy 11/28/2024 9:27 AM THERMAL CUTTING TRACER MACHINE OPERATOR Impressions 11/28/2024 9:27 AM THERMAL CUTTING TRACER MACHINE OPERATOR Osteoarthritis, as above Dictated by Jasson Barone MD @ 11/28/2024 9:27:09 AM (Electronically Signed) Narrative 11/28/2024 9:27 AM THERMAL CUTTING TRACER MACHINE OPERATOR For Patients: As a result of the 21st Century Cures Act, medical imaging exams and procedure reports are released immediately into your electronic medical record. You may view this report before your referring provider. If you have questions, please contact your health care provider. INDICATION: Chronic left knee pain TECHNIQUE: Weightbearing AP and lateral views of the left knee as well as a sunrise view COMPARISON: None FINDINGS: No joint effusion. Mild osteoarthritis at the lateral compartment and patellofemoral joint. No chondrocalcinosis. Procedure Note Jasson Barone MD - 11/28/2024 For Patients: As a result of the Cures Act, medical imagingexams and procedure reports are released immediately into your electronicmedical record. You may view this report before your referring provider.If you have questions, please contact your health care provider. INDICATION: Chronic left knee pain TECHNIQUE: Weightbearing AP and lateral views of the left knee as well as a sunriseview COMPARISON: None FINDINGS: No joint effusion. Mild osteoarthritis at the lateral compartment andpatellofemoral joint. No chondrocalcinosis. IMPRESSION: Osteoarthritis, as above Dictated by Jasson Barone MD @ 11/28/2024 9:27:09 AM (Electronically Signed) us Zander Meade MD GENERAL IMAGING Final Res ult * XR MAMMO BILAT SCREENING (05/05/2022 1:03 PM CDT) Anatomical Region Laterality Modality BREASTS, Breast Left, Breast Right Bilateral Mammography Impressions 05/06/2022 3:58 PM CDT There is no radiographic evidence for malignancy. Recommend annual mammograms. MAMMOGRAM ASSESSMENT: ACR 1 Negative PATIENTS: You will also receive a letter with your examination results in an easy to read format. If you have questions about your results, please contact your referring provider. Narrative 05/06/2022 3:58 PM CDT For Patients: As a result of the Cures Act, medical imaging exams and procedure reports are released immediately into your electronic medical record. You may view this report before your referring provider. If you have questions, please contact your health care provider. XR MAMMO BILAT SCREENING [[id number]] CLINICAL HISTORY: This is an asymptomatic 66 y.o. patient. INDICATION FOR EXAM: Mammogram Screening. TECHNIQUE: CC & MLO views were obtained. This study was evaluated with the assistance of Computer-Aided Detection. COMPARISON FILM: Yes 09/18/19 [employer] 04/23/17 [employer] FINDINGS: The breasts have scattered areas of fibroglandular density. There are no dominant masses, suspicious micro calcifications or areas of architectural distortion. us Dom Roca MD MAMMO Final Resul t * (ABNORMAL) LIPID PANEL (09/22/2021 11:59 AM THERMAL CUTTING TRACER MACHINE OPERATOR) CHOLESTEROL,TOTAL 201(H) 100 - 199 mg/dL 09/22/2021 10:24 PM THERMAL CUTTING TRACER MACHINE OPERATOR [facility] TRIGLYCERIDES 212(H) <150 mg/dL 09/22/2021 10:24 PM THERMAL CUTTING TRACER MACHINE OPERATOR [facility] HDL CHOLESTEROL 49 >40 mg/dL 10:24 PM THERMAL CUTTING TRACER MACHINE OPERATOR [facility] NON-HDL CHOLESTEROL 152(H) <145 mg/dl 09/22/2021 10:24 PM THERMAL CUTTING TRACER MACHINE OPERATOR [facility] CHOL/HDL RATIO 4.10 <4.50 09/22/2021 10:24 PM THERMAL CUTTING TRACER MACHINE OPERATOR [facility] LDL CHOLESTEROL 110 <=130 mg/dL 09/22/2021 10:24 PM THERMAL CUTTING TRACER MACHINE OPERATOR [facility] VLDL CHOLESTEROL 42(H) <=30 mg/dL 09/22/2021 10:24 PM THERMAL CUTTING TRACER MACHINE OPERATOR [facility] PROVIDER ORDERED STATUS RANDOM 09/22/2021 10:24 PM THERMAL CUTTING TRACER MACHINE OPERATOR [facility] Blood BLOOD SPECIMEN / Unknown Butterfly / Unknown 09/22/2021 11:59 AM THERMAL CUTTING TRACER MACHINE OPERATOR 09/22/2021 11:59 AM THERMAL CUTTING TRACER MACHINE OPERATOR Sherlyn Weston MD CHEMISTRY Final Resul t [facility] 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 Sherlyn Weston MD DEXA Final Resul t * ANTI HCV (06/16/2019 1:20 PM CDT) HEPATITIS C ANTIBODY Non-React wilson Non-React wilson 06/16/2019 9:34 PM CDT [facility] [place] [facility] Comment:Antibodies to HCV no t detected; does not exclude the possibility of exposure to HCV. Blood BLOOD SPECIMEN / Unknown Butterfly / Unknown 06/16/2019 1:20 PM CDT 06/16/2019 1:20 PM CDT us Sherlyn Weston MD SEND OUTS Final Resul t [facility] [address] [place] [address], [place] * COLONOSCOPY (11/02/2017 12:49 PM THERMAL CUTTING TRACER MACHINE OPERATOR) 11/02/2017 12:4 9 PM THERMAL CUTTING TRACER MACHINE OPERATOR Narrative Transcriptions Magdi Henry MD - 11/02/2017 2:22 PM CST Patient Name: Jasmin Sanchez Puneet Procedure Date: 11/02/2017 Gender: Female Date of : 1955 Admit Type: Outpatient Procedure: Colonoscopy Proceduralist: Magdi Henry MD , Chandni Hager (Nurse) Referring MD: Sofia Ceballos Indications/Pre-Op Diagnosis: This is the patient's first colonoscopy, Positive fecal immunochemical test Medications: Fentanyl 100 micrograms IV, Midazolam 2 mgIV, The level of sedation administered wasmoderate Procedure Description: The patient had risks, benefits and alternatives explained to andgave informed consent. The patient had a stable cardiopulmonary status and judged an adequate candidate for conscious sedation. The [id number] was passed through the anus and advanced tothe cecum, identified by appendiceal orifice and ileocecal valve. The colonoscopy was performed without difficulty. The patient toleratedthe procedure well. The quality of the bowel preparation was good. The ileocecal valve, appendiceal orifice, and rectum were photographed. Complications: No immediate complications. Estimated Blood Loss & Specimen: Estimated blood loss: none. Specimen collected - Yes and sent to Laboratory Findings: The perianal and digital rectal examinations were normal. A 3 mm polyp was found in the ascending colon. The polyp was sessile. The polyp was removed with a cold biopsy forceps. Resection and retrieval were complete. A 5 mm polyp was found in the transverse colon. The polyp wassessile. The polyp was removed with a hot snare. Resection and retrieval were complete. A 3 mm polyp was found in the rectum. The polyp was sessile. Thepolyp was removed with a cold biopsy forceps. Resection and retrieval were complete. Internal hemorrhoids were found during retroflexion. The hemorrhoids were small. The exam was otherwise without abnormality on direct and retroflexion views. Impressions/Post-Op Diagnosis: - One 3 mm polyp in the ascending colon, removed with a cold biopsy forceps. Resected and retrieved. - One 5 mm polyp in the transverse colon, removed with a hot snare. Resected and retrieved. - One 3 mm polyp in the rectum, removed with a cold biopsy forceps. Resected and retrieved. - Internal hemorrhoids. - The examination was otherwise normal on direct and retroflexionviews. Recommendation: - Patient has a contact number available for emergencies. The signsand symptoms of potential delayed complications were discussed with the patient. Return to normal activities tomorrow. Written discharge instructions were provided to the patient. - Resume previous diet. - Continue present medications. - Await pathology results. - Repeat colonoscopy is recommended. The colonoscopy date will be determined after pathology results from today's exam become available for review. Moderate Sedation: Moderate (conscious) sedation was administered by the endoscopy nurse and supervised by the endoscopist. The following parameters were monitored: oxygen saturation, heart rate, respiratory rate, blood pressure, adequacy of pulmonary ventilation and reponse to care. Please refer to the patien'ts medical record flowsheets and nursing notes for moderate sedation details. Total physician intraservice time was 24 minutes. Magdi Henry MD 11/02/2017 2:21:52 PM This report has been signed electronically. Note Initiated On: 11/02/2017 12:49 PM Scope In: 1:54:35 PM Scope Withdrawal Time 0 hours 13 minutes 30 seconds Scope Out: 2:17:14 PM us Magdi Henry MD PROCEDURE ORD Final Res ult from Last 3 Months or Most Recently Relevant to Health Maintenance Insurance MEDICA SELECT SOLUTION MEDICARE [place] ONLY MEDICARE PART B HB ONLY [employer] INS Advance Directives * Full Code (Latest Code Status on File) Date Activated Date Inactivated Comments 12/12/2012 11:03 PM 12/13/2012 8:13 PM * Full Code Date Activated Date Inactivated Comments 11/04/2012 6:20 AM 11/05/2012 2:07 AM * Full Code Date Activated Date Inactivated Comments 10/31/2012 7:43 AM 11/03/2012 2:30 AM * Full Code Date Activated Date Inactivated Comments 10/27/2012 6:12 AM 10/28/2012 2:07 AM * Full Code Date Activated Date Inactivated Comments 10/24/2012 6:09 AM 10/27/2012 2:28 AM Care Teams Marketing Communications Coordinator Relationship Specialty Start Date End Date [address] [address] PCP - General 09/13/23 Ade Louise CNS Psychiatry 02/24/13
--- OUTSIDE RECORDS SUMMARY | 2025-01-03 11:59 | XMS_ITS | Clinical Summary ---
Author Organization [facility] Address [address] [place] [address] Care Team Providers Care Snag Grinder Name Role Phone Katy Hill MD Primary Care Provider [phone] Allergies Active Allergy Reactions Criticality Noted Date Comments Sulfa Antibiotics 02/17/2002 Medications buPROPion (WELLBUTRIN XL) 150 MG 24 hr tablet Take 1 tablet by mouth daily at 2 pm 12/17/2022 Active buPROPion (WELLBUTRIN XL) 300 MG 24 hr tablet TAKE 1 TABLET BY MOUTH ONCE A DAY. TAKE WITH 150 TABLET TO EQUAL A TOTAL OF 450MG 09/30/2022 Active DULoxetine (CYMBALTA) 60 MG capsule Take 120 mg by mouth daily 12/24/2022 Active lamoTRIgine (LAMICTAL) 200 MG tablet Take 1 tablet by mouth daily at 2 pm 12/17/2022 Active atorvastatin (LIPITOR) 40 MG tablet 11/25/2022 Active metFORMIN (GLUCOPHAGE) 500 MG tablet 12/24/2022 Activ e VYZULTA 0.024 % SOLN ophthalmic solution PLACE INTO LEFT EYE ONCE DAILY DIRECTED. 09/28/2022 Active folic acid (FOLVITE) 1 MG tablet Take 1 tablet by mouth 2 times daily 01/06/2023 Active aspirin (ASA) 81 MG EC tablet Aspirin Acti ve Magnesium Hydroxide (DULCOLAX PO) Dulcolax Active [place]-3 Fatty Acids (FISH OIL PO) Active multivitamin w/minerals (MULTI-VITAMIN) tablet Take 1 tablet by mouth daily Active lisinopril (ZESTRIL) 20 MG tablet Take 20 mg by mouth daily Active mirabegron (MYRBETRIQ) 50 MG 24 hr tablet Take 50 mg by mouth daily Active TROSPIUM CHLORIDE PO Active mirtazapine (REMERON) 45 MG tablet Take 45 mg by mouth At Bedtime Active CLONAZEPAM PO Take 0.5 mg by mouth 2 times daily as needed for anxiety Active Active Problems Problem Noted Date Diagnosed Date Essential hypertension, benign Depressive disorder, not elsewhere classified Immunizations Name Administration Dates Next Due Flu 65+ (Fluad) 10/17/2019 Influenza (IIV3) PF 08/04/2013,08/31/2012 Influenza Vaccine 65+ (FLUAD) 08/08/2021, 020 Influenza Vaccine 65+ (Fluzone HD) 07/07/2022 Influenza Vaccine >6 months,quad, PF 08/11/2017, 09/02/2016 Influenza Vaccine Trivalent (FluBlok) 07/19/2015 Influenza Vaccine, 6+MO IM ( QUADRIVALENT W/PRESERVATIVES) 08/12/2018 Pneumo Conj 13-V (2010&after) 06/16/2019 Pneumococcal 23 valent 08/12/2020 TDAP (Adacel,Boostrix) 06/30/2013 Td (Adult), Adsorbed 09/18/2004,07/23/2003 Zoster recombinant adjuvanted (SHINGRIX) 022,03/20/2022 Social History Tobacco Use Types Packs/Day Years Used Date Smoking Tobacco: Never Smokeless Tobacco: Never Tobacco Cessation:Counseling Given: Not Answered Alcohol Use Standard Drinks/Week Comments Not Asked 0 (1 standard drink = 0.6 oz pur e alcohol) PHQ-2 Answer Date Recorded PHQ-2 Score 1 01/08/2023 Adolescent Education Answer Date Record ed Getting School Help Needed Not on file 08/05 Comments No Sex and Gender Information Value Date Recorded Sex Assigned at Not on file Legal Sex Female 3:25 AM APARTMENT MAINTENANCE SUPERVISOR Gender Identity Not on file Sexual Orientation Not on file Last Filed Vital Signs Vital Sign Reading Time Taken Comments Blood Pressure 135/84 04/19/2023 11:04 AM CDT Pulse 82 04/19/2023 11:04 AM CDT Temperature 36.7 C (98.1 F) 12/03/2004 7:06 PM APARTMENT MAINTENANCE SUPERVISOR Respiratory Rate - - Oxygen Saturation 96% 04/19/2023 11:04 AM CDT Inhaled Oxygen Concentration - - Weight 112.9 kg (249 lb) 01/08/2023 1:47 PM APARTMENT MAINTENANCE SUPERVISOR Height 177.8 cm (5' 10) 04/19/2023 11:04 AM CDT Body Mass Index 35.73 01/08/2023 1:47 PM APARTMENT MAINTENANCE SUPERVISOR Plan of Treatment Health Maintenance Due Date Last Done Comments ADVANCE CARE PLANNING 1955 ANNUAL REVIEW OF HM ORDERS [address] COLONOGRAPHY 1955 DEXA 1955 FIT 1955 FLEX SIG 1955 GLUCOSE 1955 LIPID 1955 sDNA (Cologuard) 1955 COLONOSCOPY 1963 COLORECTAL CANCER SCREENING 1963 HEPATITIS C SCREENING 1971 FALL RISK ASSESSMENT 2018 MEDICARE ANNUAL WELLNESS VISIT 03/25/2023 03/25/2022 DTAP/TDAP/TD IMMUNIZATION (2 - Td or Tdap) 06/30/2023 06/30/2013, 09/18/2004, 07/23/2003 COVID-19 Vaccine ( season) 2024 08/10/2023, 07/09/2022, 03/20/2022, Additional history exists INFLUENZA VACCINE (#1) 2024 , 07/07/2022, 08/08/2021, Additional history exists PHQ-2 (once per calendar year) 2024 01/08/2023 MAMMO SCREENING 12/08/2025 12/08/2023, 07/0 03/2022, 09/18/2019, Additional history exists RSV VACCINE (1 - 1-dose 75+ series) 2028 Pneumococcal Vaccine: 50+ Years Completed 08/12/2020, 06/16/2019 ZOSTER IMMUNIZATION Completed 08/03/2022, HPV IMMUNIZATION Aged Out No longer e ligible based on patient's age to complete this topic MENINGITIS IMMUNIZATION Aged Out No l onger eligible based on patient's age to complete this topic Procedures Procedure Name Priority Date/Time Associated Diagnosis Comments MA SCREENING DIGITAL BILATERAL Routine 12/08/2023 1:01 PM APARTMENT MAINTENANCE SUPERVISOR Visit for screening mammogram from Last 3 Months or Most Recently Relevant to Health Maintenance Results * MA Screening Digital Bilateral (12/08/2023 1:01 PM APARTMENT MAINTENANCE SUPERVISOR) Anatomical Region Laterality Modality Breast Bilateral Mammography Impressions 12/10/2023 3:13 PM APARTMENT MAINTENANCE SUPERVISOR IMPRESSION: ACR BI-RADS Category 1: Negative BREAST CANCER SCREENING RECOMMENDATION: Routine yearly mammography beginning at age 40 or as discussed with your provider. The results and recommendations of this examination will be communicated to the patient. Charli Kaye MD Narrative 12/10/2023 3:13 PM APARTMENT MAINTENANCE SUPERVISOR BILATERAL FULL FIELD DIGITAL SCREENING MAMMOGRAM Performed on: 12/08/23 Compared to: 05/05/2022 and 09/18/2019 Technique: This study was evaluated with the assistance of Computer-Aided Detection. Findings: The breasts have scattered areas of fibroglandular density. There is no radiographic evidence of malignancy. Katy Hill MD IMG MAMMOGRAPHY ORDERABLES Final Result from Last 3 Months or Most Recently Relevant to Health Maintenance Insurance MEDICARE MEDICA SELECT SOLUTION MEDICARE MEDICA SELECT SOLUTION * Guarantor: [employer] Account Type Relation to Patient Date of Phone Billing Address Employer Related 1975 [address] [facility] [address] [place] [address] Care Teams Snag Grinder Relationship Specialty Start Date End Date Katy Hill MD [address] [place] [address] PCP - General Family Medicine 12/04/22
--- OUTSIDE RECORDS SUMMARY | 2025-01-03 11:59 | XMS_ITS ---
Author Organization [facility] Address [address] [place] [address] Care Team Providers Care Executive Personal Assistant Name Role Phone HillKaty gomez Primary Care Provider [phone] None, No PCP Unavailable Unavailable Yola Ornelas Unavailable [phone] Results Component Value Reference Range Notes CREATININE Reviewed date:12/10/2024 07:43:31 PM Interpretation:Normal Performing Lab:[facility], [facility] [id number] [id number] Bony Spaulding Notes/Report: CREATININE 0.94 0.60-1.00 mg/dL EGFR 65 > OR = 60 mL/min/1.73m2 REASON FOR VISIT Creatinine Labs Medications Medication SIG (Take, Route, Frequency, Duration) Notes Start Date End Date Status Accu-Chek FastClix Lancets - as directed once daily for 90 days dx E11.9 04/11/2024 Active Amoxicillin-Pot Clavulanate 875-125 MG 1 tablet Orally every 12 hrs for 10 days 04/11/2024 Active Accu-Chek Guide - as directed In Vitro once daily for 90 days dx E11.9 04/11/2024 Active Cefdinir 300 MG 1 tab Orally twice daily for 7 days 04/17/2024 Active Gemtesa 75 MG 1 tablet Orally Once a day for 90 days 12/08/2024 Active Blood Glucose Test - as directed In Vitro for 90 days 02/11/2024 Active Lancet Device - as directed for 90 days Active Mirtazapine 45 MG 1 tablet at bedtime Orally Once a day Active Cholecalciferol Acti ve Aspirin 81 MG 1 tablet Orally Once a day Active Alive Multi-Vitamin - as directed Orally Active Fish Oil 1200 MG 1 capsule Orally Once a day Active Folic Acid Active lamoTRIgine 200 MG 1 tablet Orally Once a day Active buPROPion HCl taking 300 mg per day and 150 mg per day Active Vyzulta 0.024 % 1 drop into affected eye in the evening Ophthalmic Once a day Active Blood Pressure Monitoring Soln - as directed 11/24/2022 Active DULoxetine HCl 60 MG 1 capsule Orally Twice a day takes 2 Active Atorvastatin Calcium 80 MG 1 tablet Orally Once a day for 90 days Active Benzonatate 100 MG 1 capsule as needed Orally Three times a day 01/11/2024 Active Myrbetriq 50 MG 1 tablet Orally Once a day for 90 days Active metFORMIN HCl 1000 MG 1 tablet with a meal Orally Twice daily for 90 days Active Lisinopril 10 MG TAKE 1 TABLET BY MOUTH EVERY DAY for 90 days Active Trospium Chloride ER 60 MG 1 capsule in the morning on an empty stomach or 1 hour before a meal Orally Once a day for 90 days 10/26/2024 Active Social History Sex Assigned At : Social History Observation Description Sex Assigned At Female Encounters Encounter Location Date Provider Diagnosis [address] [address] 12/08/2024 Yola Ornelas Urge incontinence N39.41 Assessments Encounter Date Diagnosis (ICD Code) Assessment Notes Treatment Notes Treatment Clinical Notes Section Notes 12/08/2024 Urge incontinence (ICD-10 - N39.41) Plan Of Treatment Next Appt Details Provider Name:Yola Ornelas, 0 12/12/2025 11:00:00 AM, [address] [place], [address], Progress Notes * Lu CAPONEOB:1 12/17/1954 (69 yo F)Acc No.[id number]:12/08/2024 Patient: Wilber ROJOJasmin BEASLEY Provider: Chandni Ornelas DNP :1955 A ge:69 Y S ex:Female Date:12/08/2024 Address:[address] [place], [place] [id number] Pcp:Katy Hill Subjective: * Chief Complaints: * 1 . Creatinine Labs. * Medical History: * Medications: T aking Myrbetriq 50 MG Tablet Extended Release 24 Hour 1 tablet Orally Once a day , Taking Trospium Chloride ER 60 MG Capsule Extended Release 24 Hour 1 capsule in the morning on an empty stomach or 1 hour before a meal Orally Once a day , Taking metFORMIN HCl 1000 MG Tablet 1 tablet with a meal Orally Twice daily , Taking Lisinopril 10 MG Tablet TAKE 1 TABLET BY MOUTH EVERY DAY , Taking Atorvastatin Calcium 80 MG Tablet 1 tablet Orally Once a day , Taking Benzonatate 100 MG Capsule 1 capsule as needed Orally Three times a day , Taking Blood Pressure Monitoring [...] 1 tab Orally twice daily , Taking Gemtesa 75 MG Tablet 1 tablet Orally Once a day Objective: * Vitals: Assessment: * Assessment: 1. U rge incontinence - N39.41 (Primary) Plan: * Treatment: Value Reference Range C REATININE 0.94 0.60-1.00 - mg/dL * E GFR 65 > OR = 60 - mL/min/1 .73m2 * Yola Ornelas 12/10/2024 07:4 3:23 PM PUBLIC BATH ATTENDANT > * Procedure Codes: 1 011 No Charge Visit * Images: Billing Information: * Visit Code: * Procedure Codes: 1011 No Charge Visit. * IC BATH ATTENDANT Sign off status: Completed true * Provider: Chandni Ornelas DNP Date: 0 12/08/2024 Generated for Albert renee/Farrah/Jeramieitting on: 0 01/03/2025 11:59 AM PUBLIC BATH ATTENDANT
[2025-01-03 12:02] VITALS: BP 126/72; PULSE 88; RESP 18; TEMP 37; O2SAT 96; BMI 37.3
--- NOTE | 2025-01-03 12:30 | CRLHL7_ITS ---
For Patients: As a result of the Cures Act, medical imaging exams and procedure reports are released immediately into your electronic medical record. You may view this report before your referring provider. If you have questions, please contact your health care provider. INDICATION: Fall 1 week ago TECHNIQUE: CT cervical spine without contrast. COMPARISON: None FINDINGS: Vertebrae: Alignment is normal. There are no fractures or suspicious bony lesions. Discs and facet joints: Disc space narrowing and spurring C6-7. Facet degeneration mid and lower cervical spine. Extraspinal findings: Enlargement of the left thyroid lobe. No apical pneumothorax. No adenopathy. IMPRESSION: No cervical spine fracture. Enlarged left thyroid lobe. Correlation with ultrasound recommended, nonemergent. Please note that all CT scans at this facility use dose modulation, iterative reconstruction, and/or weight-based dosing when appropriate to reduce radiation dose to as low as reasonably achievable. Dictated by Kiko Girard MD @ 01/03/2025 12:59:27 PM (Electronically Signed)
--- NOTE | 2025-01-03 12:30 | CRLHL7_ITS ---
For Patients: As a result of the Century Cures Act, medical imaging exams and procedure reports are released immediately into your electronic medical record. You may view this report before your referring provider. If you have questions, please contact your health care provider. INDICATION: FALL, LACERATION TO RIGHT POSTERIOR HEAD, HEADACHE COMPARISON: none TECHNIQUE: A CT volumetric acquisition was performed of the brain without IV contrast. Please note that all CT scans at this facility use dose modulation, iterative reconstruction, and/or weight-based dosing when appropriate to reduce radiation dose to as low as reasonably achievable. FINDINGS: Patchy areas of decreased attenuation in the periventricular and subcortical white matter noted bilaterally compatible with chronic white matter disease. Mild generalized cortical atrophy. No intracranial hemorrhage, mass, mass effect or hydrocephalus. Mucosal thickening within the ethmoid and maxillary sinuses. IMPRESSION: No intracranial hemorrhage or fracture. Pre-existing sinus disease. Please note that all CT scans at this facility use dose modulation, iterative reconstruction, and/or weight-based dosing when appropriate to reduce radiation dose to as low as reasonably achievable. Dictated by Kiko Girard MD @ 01/03/2025 1:01:29 PM (Electronically Signed)
--- NOTE | 2025-01-03 12:31 | ED.GENADULT ---
HPI - General Adult General Chief complaint: Head Injury/Pain Stated complaint: Shooting pains in head Time Seen by Provider: 01/03/25 12:04 History of Present Illness HPI narrative: PATIENT IS A 69 YEAR WHITE FEMALE WHO IS DIABETIC HYPERTENSIVE common suffers depression, who fell on the 20/04 while attempting to do squats wall exercising. She line on the back of her head she needed a glued she had no loss of consciousness. She had a small laceration as mention. She has mild neck pain and headache since then. She reports now she gets some burning and sharp shooting pain over where her glue material was applied over her occipital area of her scalp. She has no focal neurologic weakness or problem. Related Data Home Medications ?Medication ?Instructions ?Recorded ?Confirmed aripiprazole 5 mg tablet 5 mg PO 06/07/22 02/09/24 atorvastatin 40 mg tablet 40 mg PO HS 06/07/22 01/03/25 bupropion HCl 150 mg 24 hr tablet, 150 mg PO DAILY 06/07/22 01/03/25 extended release bupropion HCl 300 mg 24 hr tablet, 300 mg PO DAILY 06/07/22 01/03/25 extended release duloxetine 60 mg capsule,delayed 120 mg PO DAILY 06/07/22 01/03/25 release folic acid 1 mg tablet 1 mg PO BID 06/07/22 01/03/25 lamotrigine 25 mg tablet 25 mg PO 06/07/22 02/09/24 metformin 500 mg tablet 1,000 mg PO BID 06/07/22 01/03/25 mirtazapine 45 mg tablet 45 mg PO HS 06/07/22 01/03/25 solifenacin 10 mg tablet ea PO 06/07/22 02/09/24 mirabegron 50 mg tablet,extended 50 mg PO QDAY 02/09/24 01/03/25 release 24 hr (Myrbetriq) trospium 60 mg capsule,extended 60 mg PO QAM 02/09/24 01/03/25 release 24 hr cholecalciferol (vitamin D3) 50 2,000 unit PO DAILY 01/03/25 01/03/25 mcg (2,000 unit) capsule clonazepam 0.5 mg tablet 0.5 mg PO DAILY 01/03/25 01/03/25 fluconazole 200 mg tablet 200 mg PO 01/03/25 fluticasone propionate 50 intranasal 01/03/25 mcg/actuation nasal spray,suspension lamotrigine 200 mg tablet 200 mg PO DAILY 01/03/25 01/03/25 latanoprostene bunod 0.024 % eye 1 drp ophthalmic (eye-left) QPM 01/03/25 01/03/25 drops (Vyzulta) lisinopril 10 mg tablet mg DAILY 01/03/25 omega 6-few-lrd-fish oil 1,200 mg cap PO 01/03/25 (144 mg-216 mg) capsule (Fish Oil) Allergies Allergy/AdvReac Type Severity Reaction Status Date / Time Sulfa (Sulfonamide Allergy Mild Rash Verified 01/03/25 12:18 Antibiotics) Review of Systems Status of ROS: Reports: 6 or more systems reviewed and unremarkable except as noted in History and below [facility] Medical History Bronchitis ?J40 - Bronchitis, not specified as acute or chronic (ICD-10) Cough ?R05.9 - Cough, unspecified (ICD-10) Social History Smoking Status: Never smoker How often do you have a drink containing alcohol: never AUDIT-C Alcohol total score: 0 Exam Narrative: Exam Narrative: Objective: Patient's vital signs are within normal limits She is alert orient x3 very pleasant She has a glued laceration over her superior occiput. Appears well healed and not infected. No other swellings or abnormalities noted. Neck is shows fairly full range of motion no specific midline tenderness. Patient does report some mild neck is tenderness when moving her neck. No focal neurologic deficit noted in upper lower extremities. Const: Vital Signs, click to edit/add: Vital Signs - 24 hr 01/03/25 12:02 Temperature 98.6 F Pulse Rate [Pulse Oximeter] 88 Respiratory Rate 18 Blood Pressure [Ri ght Upper Arm] 126/72 Pulse Oximetry 96 Oxygen Delivery Me thod Room Air Course Vital Signs Vital signs: Initial Vital Signs Temperature 98.6 F 01/03/25 12:02 Temperature Source Temporal Artery Scan 01/03/25 12:02 Pulse Rate 88 01/03/25 12:02 Respiratory Rate 18 01/03/25 12:02 Blood Pressure 126/72 01/03/25 12:02 Blood Pressure Mean 90 01/03/25 12:02 Blood Pressure Position Sitting 01/03/25 12:02 Pulse Oximetry 96 01/03/25 12:02 Oxygen Delivery Method Room Air 01/03/25 12:02 Vital Signs Temperature 98.6 F 01/03/25 12:02 Pulse Rate 88 01/03/25 12:02 Respiratory Rate 18 01/03/25 12:02 Blood Pressure 126/72 01/03/25 12:02 Pulse Oximetry 96 01/03/25 12:02 Oxygen Delivery Method Room Air 01/03/25 12:02 Temperature 98.6 F 01/03/25 12:02 Pulse Rate 88 01/03/25 12:02 Respiratory Rate 18 01/03/25 12:02 Blood Pressure 126/72 01/03/25 12:02 Pulse Oximetry 96 01/03/25 12:02 Oxygen Delivery Method Room Air 01/03/25 12:02 Medical Decision Making MDM Narrative Medical decision making narrative: 69-year-old female who fell low over week ago with persistent head pain and neck pain. I think it be reasonable to get a CT of her head neck ensure there is no abnormality. She is not on blood thinners. If this is negative then I think symptomatic management observation Tylenol be appropriate, she and her significant other were comfortable this plan. Will review labs as they return. Addendum 1:[address] have head and neck update, the patient's images were read as negative. She will be discharged home, Tylenol as necessary, observation, follow up with regular doctor within the next week recommended. Do not engage in any heavy exertional activities or potential contact activities. Discharge Plan Discharge Clinical Impression: Fall, Closed head injury, Cervical spine pain Patient Disposition: Home w/ Parent or Adult Condition: Stable Additional Instructions: Light activity, no exercise for least a week, follow up with regular doctor in a week's time. Tylenol as needed for discomfort. Activity Level: Light activity Discharge Diet: Regular Prescriptions: No Action atorvastatin 40 mg tablet 40 mg PO HS aripiprazole 5 mg tablet 5 mg PO Patient Comments: TAKE 1 TABLET BY MOUTH EVERY DAY duloxetine 60 mg capsule,delayed release(DR/EC) 120 mg PO DAILY bupropion HCl 300 mg tablet extended release 24 hr 300 mg PO DAILY Patient Comments: TAKE 1 TABLET BY MOUTH EVERY DAY solifenacin 10 mg tablet PO Patient Comments: TAKE 1 TABLET BY MOUTH EVERY DAY bupropion HCl 150 mg tablet extended release 24 hr 150 mg PO DAILY Patient Comments: TAKE 1 TABLET BY MOUTH 1 TIME PER DAY WITH 300MG TABLET folic acid 1 mg tablet 1 mg PO BID Patient Comments: TAKE 1 TABLET BY MOUTH TWICE DAILY mirtazapine 45 mg tablet 45 mg PO HS Patient Comments: TAKE 1 TABLET BY MOUTH 1 TIME PER DAY BEFORE BEDTIME lamotrigine 25 mg tablet 25 mg PO Patient Comments: TAKE 3 TABLETS BY MOUTH EVERY DAY metformin 500 mg tablet 1,000 mg PO BID trospium 60 mg capsule,extended release 24hr 60 mg PO QAM Rx Instructions: must be taken on empty stomach at least 1 hour before a meal/food with water only Myrbetriq 50 mg tablet extended release 24 hr 50 mg PO QDAY cholecalciferol (vitamin D3) 50 mcg (2,000 unit) capsule 2,000 unit PO DAILY clonazepam 0.5 mg tablet 0.5 mg PO DAILY omega 5-ppv-kzb-fish oil [Fish Oil] 1,200 (144-216) mg capsule PO fluconazole 200 mg tablet 200 mg PO fluticasone propionate 50 mcg/actuation spray,suspension INTRANASAL lamotrigine 200 mg tablet 200 mg PO DAILY lisinopril 10 mg tablet DAILY Vyzulta 0.024 % drops 1 drp ophthalmic (eye-left) QPM Follow Up/Referrals: Zander Meade MD [Primary Care Provider] - Stand Alone Forms: [facility] Info Instructions
--- OUTSIDE RECORDS SUMMARY | 2025-01-03 12:32 | XMS_ITS | Encounter Summary ---
Author Organization [facility] Address [address] [place] [address] Care Team Providers Care Transcribing Machine Operator Name Role Phone Katy Hill MD Primary Care Provider [phone]- [phone] Maldonado Krueger MD Unavailable Kamila Ewing MD Unavai lable Encounter Details Date Type Department Care Team (Late st Contact Info) Description 08/27/2023 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 Gender Identity Not on file Sexual Orientation Not on file documented as of this encounter Plan of Treatment Not on file documented as of this encounter Visit Diagnoses Not on filedocumented in this encounter Care Teams Transcribing Machine Operator Relationship Specialty Start Date End Date Katy Hill MD [address] [facility] [address] [facility] [place] [address] PCP - General Family Medicine 12/04/22 Maldonado Krueger MD [address] [place], [place] [address] Assigned Heart and Vascular Provider 01/16/23 07/23/24 Kamila Ewing MD [address] [place], [place] [address] Assigned Sleep Provider 04/24/2310/22 documented as of this encounter
--- OUTSIDE RECORDS SUMMARY | 2025-01-03 12:32 | XMS_ITS | Encounter Summary ---
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 Gender Identity Not on file Sexual Orientation Not on file documented as of this encounter Plan of Treatment Not on file documented as of this encounter Visit Diagnoses Not on filedocumented in this encounter Care Teams Senior Business Development Manager Relationship Specialty Start Date End Date Katy Hill MD [address] [place] [address] PCP - General Family Medicine 12/04/22 Maldonado Krueger MD [address] [facility] [address] [place] [address] Assigned Heart and Vascular Provider 01/16/23 07/23/24 Kamila Ewing MD [address] [place], [place] [address] Assigned Sleep Provider 04/24/2310/22 documented as of this encounter
--- OUTSIDE RECORDS SUMMARY | 2025-01-03 12:33 | XMS_ITS | Patient Health Record ---
Author Organization [facility] Address [address] [place] [address] Care Team Providers Care Belting Inspector Name Role Phone Katy Hill Primary Care Provider None, No PCP Unavailable Unavailable Yola Ornelas Unavailable [phone] Tracey Nolan Unavailable [phone] Allergies Allergen (clinical drug ingredient) Drug/Non Drug Allergy documented on EMR Reaction Allergy Type Onset Date Status Substance with sulfonamide structure and antibacterial mechanism of action (substance) Sulfa Antibiotics rash Drug Allergy Active Results Component Value Reference Range Notes HEMOGLOBIN A1c Reviewed date:04/07/2024 07:54:15 AM Interpretation: Performing Lab:JEREL, [facility] Wszg5494 [facility], [facility] CenterJopcQQ[address] Bony Spaulding Notes/Report: 0; 0; 0 HEMOGLOBIN A1c 6.7 <5.7 % of total Hgb HbA1c results compared to historical results. will have had a shift in their results and direct greater than or equal to 7% indicates suboptimal This test was performed on the Mary milka c503 platform. testing conducted on different platforms is not Effective 01/05/24, a change in test platforms from the recommended. that their diabetes is well controlled and a value value of 6.5% or greater indicates that they may have duration of diabetes, age, comorbid conditions, and [facility], the Mary platform relative to the [facility] to the Mary milka c503 may have shifted < or = 0.3%. This difference is within accepted variability For someone without known diabetes, a hemoglobin A1c control. A1c targets should be individualized based on Based on laboratory validation testing conducted at Standardization Program. Note that not all individuals diabetes and this should be confirmed with a follow-up other considerations. platform had an average increase in HbA1c value of test. hemoglobin A1c for diagnosis of diabetes for children. Currently, no consensus exists regarding use of established by the National Glycohemoglobin comparisons between historical and current results for For someone with known diabetes, a value <7% indicates BASIC METABOLIC PANEL (BMP) Reviewed date:04/07/2024 07:54:15 AM Interpretation: Performing Lab:JEREL [employer] [employer], OfuzIjteJR[address] Bony Spaulding Notes/Report: 0; 0; 0 GLUCOSE 154 65-99 mg/dL Fasting reference interval value >125 mg/dL indicates that they may have For someone without known diabetes, a glucose diabetes and this should be confirmed with a follow-up test. UREA NITROGEN (BUN) 25 7-25 mg/dL CREATININE 0.99 0.60-1.00 mg/dL EGFR 61 > OR = 60 mL/min/1.73m2 BUN/CREATININE RATIO SEE NOTE: 6-22 (calc) reference range. Not Reported: BUN and Creatinine are within SODIUM 139 135-146 mmol/L POTASSIUM 4.8 3.5-5.3 mmol/L CHLORIDE 104 98-110 mmol/L CARBON DIOXIDE 24 20-32 mmol/L CALCIUM 10.0 8.6-10.4 mg/dL LIPID PANEL Reviewed date:04/07/2024 07:54:15 AM Interpretation: Performing Lab:JEREL [employer] [employer], OfuzUmtgDT[address] Bony Spaulding Notes/Report: 0; 0; 0 CHOLESTEROL, TOTAL 153 <200 mg/dL HDL CHOLESTEROL 50 > OR = 50 mg/dL TRIGLYCERIDES 209 <150 mg/dL If a non-fasting specimen was collected, consider Kwan et al. J. of Clin. Lipidol. 2015;9:129-169. repeat triglyceride testing on a fasting specimen if clinically indicated. LDL-CHOLESTEROL 73 calculation, which is a validated novel method providing better accuracy than the Friedewald equation in the Magdi HOWELL et al. PETER. 2013;310(19): 1998-3659 Desirable range <100 mg/dL for primary prevention; estimation of LDL-C. (http://education.Userscout.com/faq/RIU953) <70 mg/dL for patients with CHD or diabetic patients with > or = 2 CHD risk factors. LDL-C is now calculated using the [facility] Reference range: <100 CHOL/HDLC RATIO 3.1 <5.0 (calc) NON HDL CHOLESTEROL 103 <130 mg/dL (calc) option. For patients with diabetes plus 1 major ASCVD risk (LDL-C of <70 mg/dL) is considered a therapeutic factor, treating to a non-HDL-C goal of <100 mg/dL CREATININE Reviewed date:12/10/2024 07:43:31 PM Interpretation:Normal Performing Lab:JEREL [facility] [employer] [employer], Si2 MicrosystemsLglkGZ[address] Bony Spaulding Notes/Report: CREATININE 0.94 0.60-1.00 mg/dL EGFR 65 > OR = 60 mL/min/1.73m2 HEMOGLOBIN A1c Reviewed date:10/04/2024 07:35:31 AM Interpretation: Performing Lab:JEREL Instructure[address] [employer] [address] [employer], Si2 MicrosystemsZaonQH[address] Bony Spaulding Notes/Report: 0; 0; 0 HEMOGLOBIN A1c 6.5 <5.7 % of total Hgb hemoglobin A1c for diagnosis of diabetes for children. control. A1c targets should be individualized based on For someone with known diabetes, a value <7% indicates test. that their diabetes is well controlled and a value greater than or equal to 7% indicates suboptimal other considerations. For someone without known diabetes, a hemoglobin A1c diabetes and this should be confirmed with a follow-up value of 6.5% or greater indicates that they may have duration of diabetes, age, comorbid conditions, and Currently, no consensus exists regarding use of BASIC METABOLIC PANEL (BMP) Reviewed date:10/04/2024 07:35:31 AM Interpretation: Performing Lab:JEREL [address], OfuzYsjbBN[address] Bony Spaulding Notes/Report: 0; 0; 0 GLUCOSE 98 65-99 mg/dL Fasting referen ce interval UREA NITROGEN (BUN) 23 7-25 mg/dL CREATININE 0.95 0.60-1.00 mg/dL EGFR 64 > OR = 60 mL/min/1.73m2 BUN/CREATININE RATIO SEE NOTE: 6-22 (calc) reference range. Not Reported: BUN and Creatinine are within SODIUM 139 135-146 mmol/L POTASSIUM 4.5 3.5-5.3 mmol/L CHLORIDE 101 98-110 mmol/L CARBON DIOXIDE 30 20-32 mmol/L CALCIUM 10.3 8.6-10.4 mg/dL LIPID PANEL Reviewed date:10/04/2024 07:35:30 AM Interpretation: Performing Lab:JEREL Reality [employer]-[employer] Evfz[address] [employer] [facility] [place] QmmxNL[address] Bony Spaulding Notes/Report: 0; 0; 0 CHOLESTEROL, TOTAL 171 <200 mg/dL HDL CHOLESTEROL 55 > OR = 50 mg/dL TRIGLYCERIDES 287 <150 mg/dL if clinically indicated. repeat triglyceride testing on a fasting specimen If a non-fasting specimen was collected, consider Kwan et al. J. of Clin. Lipidol. 2015;9:129-169. LDL-CHOLESTEROL 78 Reference range: <100 Magdi SS et al. PETER. 2013;310(19): 7669-5689 Desirable range <100 mg/dL for primary prevention; estimation of LDL-C. (http://education.Userscout.com/faq/TFF826) <70 mg/dL for patients with CHD or diabetic patients LDL-C is now calculated using the Magdi-Huggins with > or = 2 CHD risk factors. better accuracy than the Friedewald equation in the calculation, which is a validated novel method providing CHOL/HDLC RATIO 3.1 <5.0 (calc) NON HDL CHOLESTEROL 116 <130 mg/dL (calc) For patients with diabetes plus 1 major ASCVD risk (LDL-C of <70 mg/dL) is considered a therapeutic option. factor, treating to a non-HDL-C goal of <100 mg/dL HEMOGLOBIN A1c Reviewed date:01/05/2024 10:28:02 AM Interpretation: Performing Lab:JEREL [facility] [employer] Vdvz5731 [employer] [address] [facility] [place] EuheFE[address] Bony Spaulding Notes/Report: 0; 0; 0; 0 HEMOGLOBIN A1c 6.4 <5.7 % of total Hgb HbA1c performed on Villa platform. Currently, no consensus exists regarding use of indicates that their diabetes is well controlled. A1c diabetes, age, comorbid conditions, and other This assay result is consistent with an increased risk follow-up test. targets should be individualized based on duration of A1c value between 5.7% and 6.4% is consistent with prediabetes and should be confirmed with a of diabetes. For someone with known diabetes, a value <7% For someone without known diabetes, a hemoglobin hemoglobin A1c for diagnosis of diabetes for children. considerations. CBC (INCLUDES DIFF/PLT) Reviewed date:01/05/2024 10:28:02 AM Interpretation: Performing Lab:JEREL [facility] [employer] [address], Si2 [id number] Bony Spaulding Notes/Report: 0; 0; 0; 0 WHITE BLOOD CELL COUNT 7.7 3.8-10.8 Thousand/ uL RED BLOOD CELL COUNT 4.68 3.80-5.10 Million/uL HEMOGLOBIN 14.1 11.7-15.5 g/dL HEMATOCRIT 42.3 35.0-45.0 % MCV 90.4 80.0-100.0 fL MCH 30.1 27.0-33.0 pg MCHC 33.3 32.0-36.0 g/dL RDW 12.7 11.0-15.0 % PLATELET COUNT 361 140-400 Thousand/uL MPV 11.8 7.5-12.5 fL ABSOLUTE NEUTROPHILS 4073 4154-5450 cells/uL ABSOLUTE LYMPHOCYTES 2233 850-3900 cells/uL ABSOLUTE MONOCYTES 624 200-950 cells/uL ABSOLUTE EOSINOPHILS 631 15-500 cells/uL ABSOLUTE BASOPHILS 139 0-200 cells/uL NEUTROPHILS 52.9 LYMPHOCYTES 29.0 MONOCYTES 8.1 EOSINOPHILS 8.2 BASOPHILS 1.8 COMPREHENSIVE METABOLIC PANE L (CMP) Reviewed date:01/05/2024 10:28:02 AM Interpretation: Performing Lab:JEREL [facility] [address], OfuzEcrsQI[address] Bony Spaulding Notes/Report: 0; 0; 0; 0 GLUCOSE 185 65-99 mg/dL For someone without known diabetes, a glucose Fasting reference interval follow-up test. diabetes and this should be confirmed with a value >125 mg/dL indicates that they may have UREA NITROGEN (BUN) 26 7-25 mg/dL CREATININE 1.05 0.60-1.00 mg/dL EGFR 57 > OR = 60 mL/min/1.73m2 BUN/CREATININE RATIO 25 6-22 (calc) SODIUM 140 135-146 mmol/L POTASSIUM 4.5 3.5-5.3 mmol/L CHLORIDE 103 98-110 mmol/L CARBON DIOXIDE 28 20-32 mmol/L CALCIUM 10.2 8.6-10.4 mg/dL PROTEIN, TOTAL 6.8 6.1-8.1 g/dL ALBUMIN 4.2 3.6-5.1 g/dL GLOBULIN 2.6 1.9-3.7 g/dL (calc) ALBUMIN/GLOBULIN RATIO 1.6 1.0-2.5 (calc) BILIRUBIN, TOTAL 0.4 0.2-1.2 mg/dL ALKALINE PHOSPHATASE 285 37-153 U/L AST 42 10-35 U/L ALT 40 6-29 U/L LIPID PANEL Reviewed date:01/05/2024 10:28:02 AM Interpretation: Performing Lab:J[facility]EL [facility], [facility] CenterHxfqRQ[address] Bony Spaulding Notes/Report: 0; 0; 0; 0 CHOLESTEROL, TOTAL 172 <200 mg/dL HDL CHOLESTEROL 50 > OR = 50 mg/dL TRIGLYCERIDES 227 <150 mg/dL Bowens et al. J. of Clin. Lipidol. 2015;9:129-169. repeat triglyceride testing on a fasting specimen if clinically indicated. If a non-fasting specimen was collected, consider LDL-CHOLESTEROL 90 with > or = 2 CHD risk factors. <70 mg/dL for patients with CHD or diabetic patients Desirable range <100 mg/dL for primary prevention; LDL-C is now calculated using the Renita (http://education.Userscout.com/faq/IZN558) Magdi HOWELL et al. PETER. 2013;310(19): 0467-4111 estimation of LDL-C. better accuracy than the Friedewald equation in the calculation, which is a validated novel method providing Reference range: <100 CHOL/HDLC RATIO 3.4 <5.0 (calc) NON HDL CHOLESTEROL 122 <130 mg/dL (calc) factor, treating to a non-HDL-C goal of <100 mg/dL For patients with diabetes plus 1 major ASCVD risk option. (LDL-C of <70 mg/dL) is considered a therapeutic Reason For Referral Reason [facility] 1 Recurrent sinusitis (J32.9) Referral Organization [facility] Referring Provider First Name Katy Referring Provider Last Name Liz Referring Provider Speciality [facility] fidelia Referred Provider Specialty Ear, nose an d throat surgeon General Notes Tracey Nolan 11:24:36 AM CDT > Patient needs a full ENT exam and possible cultures. Please send and urgent referral to ENT. Clinical Notes Carmelita Arana 12/2023 01:31:19 PM > Referral made and faxed electronically to [facility] [phone] for phone and [phone] for fax., Smita Smiley 06/01/2024 03:16:34 PM > Pt scheduled 06/30. SS Referral Priority Urgent Referral Appointment Date 06/30/2024 Medications Medication SIG (Take, Route, Frequency, Duration) Notes Start Date End Date Status Alive Multi-Vitamin - as directed Orally Active Myrbetriq 50 MG 1 tablet Orally Once a day for 90 days Active Vyzulta 0.024 % 1 drop into affected eye in the evening Ophthalmic Once a day Active Amoxicillin-Pot Clavulanate 875-125 MG 1 tablet Orally every 12 hrs for 10 days 04/11/2024 Active Fish Oil 1200 MG 1 capsule Orally Once a day Active Accu-Chek Guide - as directed In Vitro once daily for 90 days dx E11.9 04/11/2024 Active Accu-Chek FastClix Lancets - as directed once daily for 90 days dx E11.9 04/11/2024 Active Blood Pressure Monitoring Soln - as directed 11/24/2022 Active Blood Glucose Test - as directed In Vitro for 90 days 02/11/2024 Active DULoxetine HCl 60 MG 1 capsule Orally Twice a day takes 2 Active Lancet Device - as directed for 90 days Active Atorvastatin Calcium 80 MG 1 tablet Orally Once a day for 90 days Active Mirtazapine 45 MG 1 tablet at bedtime Orally Once a day Active Benzonatate 100 MG 1 capsule as needed Orally Three times a day 01/11/2024 Active Cholecalciferol Acti ve metFORMIN HCl 1000 MG 1 tablet with a meal Orally Twice daily for 90 days Active Folic Acid Active Lisinopril 10 MG TAKE 1 TABLET BY MOUTH EVERY DAY for 90 days Active Aspirin 81 MG 1 tablet Orally Once a day Active lamoTRIgine 200 MG 1 tablet Orally Once a day Active Cefdinir 300 MG 1 tab Orally twice daily for 7 days 04/17/2024 Active Trospium Chloride ER 60 MG 1 capsule in the morning on an empty stomach or 1 hour before a meal Orally Once a day for 90 days 10/26/2024 Active buPROPion HCl taking 300 mg per day and 150 mg per day Active Gemtesa 75 MG 1 tablet Orally Once a day for 90 days 12/08/2024 Active Immunizations Vaccine Route Administration Date Status Comme nts COVID-19 Unknown 01/01/2021 Administered COVID-19 Unknown 01/29/2021 Administered COVID-19 Unknown 09/15/2021 Administered COVID-19 Unknown 03/20/2022 Administered COVID-19 Unknown 07/09/2022 Administered Fluzone VFC Unknown 07/07/2022 Administered Pneumococcal conjugate PCV 13 Unknown 06/16/2019 Admini stered Pneumococcal polysaccharide PPV23 Unknown 08/12/2020 Ad ministered TDAP VACCINE >7 IM Unknown 06/30/2013 Administered Zoster Unknown 03/20/2022 Administered Zoster Unknown 08/03/2022 Administered Social History Tobacco Use: Social History Observation Description Date Details (start date - stop date) Never Smoker NA - NA Sex Assigned At : Social History Observation Description Sex Assigned At Female Tobacco Use/Smoking Question Answer Notes Are you a nonsmoker Tobacco use other than smoking: Question Answer Notes Are you an other tobacco user? No Problems Problem Type SNOMED Code ICD Code Onset Dates Problem Status W/U Status Risk Notes Problem 690792631 Mixed hyperlipidemia (E78.2) Active confirmed Problem Prolapse of female genital organs (51329959) Other female genital prolapse (N81.89) Active confirmed Problem Incontinence (15631020) Incontinence (R32) Active confirmed Problem Constipation (17674039) Constipation (K59.00) Active confirmed Problem Urinary frequency (117604184) Urinary frequency (R35.0) Active confirmed Problem Overactive urinary bladder (disorder) (869296026) OAB (overactive bladder) (N32.81) Active confirmed Problem 204219463 Vaginal burning (N94.9) Active confirmed Problem Type 2 diabetes mellitus without complication (882815969) Type 2 diabetes mellitus without complication, without long-term current use of insulin (E11.9) Active confirmed Problem 22756127 Primary hypertension (I10) Active confirmed Problem Benign essential hypertension (9913566) Benign essential hypertension (I10) Active confirmed Problem Hyperlipidaemia (58245644) Hyperlipemia (E78.5) Active confirmed Problem Incontinence of urine (303439376) Incontinence of urine (R32) Active confirmed Problem 382944276 Recurrent sinusitis (J32.9) Active confirmed Problem Type II diabetes mellitus without complication (511898082) Controlled type 2 diabetes mellitus without complication (E11.9) Active confirmed Problem 90667090 Nocturnal polyuria (R35.81) Active w/u pending Problem Urge incontinence of urine (58003340) Urge incontinence (N39.41) Active confirmed Vital Signs Heart Rate 89 /min 04/11/2024 Respiratory Rate 20 /min 04/11/2024 Oximetry 97 % 04/11/2024 Blood pressure diastolic 76 mm Hg 12/08/2024 Height 68 in 12/08/2024 Blood pressure systolic 118 mm Hg 12/08/2024 Weight 236.8 lbs 12/08/2024 BMI 36 kg/m2 12/08/2024 Encounters Encounter Location Date Provider Diagnosis [address] [place] [address] 01/04/2024 Katy Hill Encounter for well woman exam Z01.419 ; Screening for metabolic disorder Z13.228 ; Diabetes mellitus screening Z13.1 and Lipid screening Z13.220 [facility] [place] [address] 01/11/2024 Katy Hill Type 2 diabetes mellitus without complication, without long-term current use of insulin E11.9 ; Benign essential hypertension I10 and Mixed hyperlipidemia E78.2 [address] [address] [place] [address] 04/03/2024 Katy Hill Type 2 diabetes mellitus without complication, without long-term current use of insulin E11.9 ; Lipid screening Z13.220 and Screening for metabolic disorder Z13.228 [facility] [place] [address] 04/11/2024 Katy Hill Type 2 diabetes mellitus without complication, without long-term current use of insulin E11.9 and Recurrent sinusitis J32.9 [facility] [address] [place] [address] 10/03/2024 Katy Hill Type 2 diabetes mellitus without complication, without long-term current use of insulin E11.9 [facility] [address] [place] [address] 12/08/[address] [facility] Urge incontinence N39.41 [facility] [address] [place] [address] 12/08/[address] [facility] Urge incontinence N39.41 [facility] [address] [place] [address] 01/11/2024 Katy Liz Type 2 diabetes mellitus without complication, without long-term current use of insulin E11.9 [facility] [address] [place] [address] [place] [id number] 03/31/2024 Katy Hill [facility] [address] [place] [address] 04/11/2024 Katy Liz Type 2 diabetes mellitus without complication, without long-term current use of insulin E11.9 [facility] [address] [place] [address] 05/01/2024 Tracey Nolan [facility] [address] [place] [address] 10/26/2024 [facility] [address] [place] [address] 12/04/2024 [facility] [address] [place] [address] 12/22/2024 [facility] [address] [place] [address] 01/26/2024 [facility] [address] [place] [address] 01/26/2024 [facility] [place] [address] 01/26/2024 Katy Hill [facility] [place] [address] 02/11/2024 Tracey Nolan [facility] [place] [address] 03/15/2024 Katy Hill Type 2 diabetes mellitus without complication, without long-term current use of insulin E11.9 [facility] [place] [address] 04/17/2024 Katy Hill [facility] [place] [address] 05/01/2024 Katy Hill Assessments Encounter Date Diagnosis (ICD Code) Assessment Notes Treatment Notes Treatment Clinical Notes Section Notes 01/04/2024 Encounter for well woman exam (ICD-10 - Z01.419) 01/11/2024 Type 2 diabetes mellitus without complication, without long-term current use of insulin (ICD-10 - E11.9) A1c is at 6.4 which is in good range. Will continue with metformin 1000 mg twice daily. Continue with daily aspirin. Blood pressures in good range. Eliquis currently 90. We discussed her slightly elevated creatinine but is actually improved since last visit. 01/11/2024 Benign essential hypertension (ICD-10 - I10) Blood pressures are controlled, if anything on the lower end. Will decrease lisinopril to 10 mg daily. Encouraged her to drink plenty of fluids. Follow-up in 3 months for recheck. We discussed our goals for her to have her blood pressure less than 130/80 but greater than 100/60. 01/11/2024 Type 2 diabetes mellitus without complication, without long-term current use of insulin (ICD-10 - E11.9) 03/15/2024 Type 2 diabetes mellitus without complication, without long-term current use of insulin (ICD-10 - E11.9) 04/03/2024 Type 2 diabetes mellitus without complication, without long-term current use of insulin (ICD-10 - E11.9) 04/03/2024 Lipid screening (ICD-10 - Z13.220) 04/11/2024 Type 2 diabetes mellitus without complication, without long-term current use of insulin (ICD-10 - E11.9) 68-year-old female here for recheck of her diabetes. Her A1c has slightly increased from 6.4-6.7. She states she has been eating a few more sweets and will bring that back in. She is taking her medications regularly. She does need glucometer supplies and these were sent to the pharmacy. Continue with daily aspirin and yearly eye exams. Blood pressure is in good range and LDL is at 70. Follow-up in 6 months 04/11/2024 Recurrent sinusitis (ICD-10 - J32.9) initially responded to Augmentin but symptoms did not return. Recommend a longer course, 10 days of amoxicillin along with nasal saline rinses and let us know if symptoms or not improving or if at any point they are worsening. 04/11/2024 Type 2 diabetes mellitus without complication, without long-term current use of insulin (ICD-10 - E11.9) 10/03/2024 Type 2 diabetes mellitus without complication, without long-term current use of insulin (ICD-10 - E11.9) 12/08/2024 Urge incontinence (ICD-10 - N39.41) She [...] provided with handouts and encouraged to watch [employer] patient education videos on Interstim. Patient is not interested at this time. Creatinine drawn today for group home drug therapy monitoring. Plan based on result. If she starts Gemtesa she will follow up in 6 weeks. If Gemtesa is too expensive she will follo wup in 1 year. 12/08/2024 Urge incontinence (ICD-10 - N39.41) 04/03/2024 Screening for metabolic disorder (ICD-10 - Z13.228) 01/04/2024 Screening for metabolic disorder (ICD-10 - Z13.228) 01/11/2024 Mixed hyperlipidemia (ICD-10 - E78.2) LDL is currently at 90 on atorvastatin 80 mg daily. 01/04/2024 Diabetes mellitus screening (ICD-10 - Z13.1) 01/04/2024 Lipid screening (ICD-10 - Z13.220) 12/08/2024 Other Time spent on patient care including - review of previous records - preparation for visit - ordering medications, labs or imaging - documenting visit - discussion of care with another health manager of care if indicated - direct face to face [...] of the note, Vibe[employer] material was printed 01/26/2024 Other CancelRx Respon se got Denied on 2024-01-26 16:21:05 for 'Trospium Chloride ER 60 MG Capsule Extended Release 24 Hour'Pharmacy Notes: Unable to Cancel Rx. Please contact Pharmacy Plan Of Treatment Next Appt Details Provider Name:Chandni Ocasio 12/12/2025 11:00:00 AM, [address] [place], [address], Insurance Providers Payer Name Payer Address Payer Phone Subscriber Number Group Number Insured Name Patient Relationship to Insured Coverage Start Date Coverage End Date Medicare (Ins. Bill) [address] [place], [place] [id number] Jasmin Roblero Self - patient is the insured [employer] (Ins. Bill) [address] [address] [place], [place] [id number] Jasmin Roblero Self - patient is the insured Medical (General) History Medical History History ICD Code hyperlipemia glaucoma hypertensionaucoma Depression/Anxiety Arthritis Bladder infections Kidney infections Diabetes Type 2-No insulin Surgical History Surgery Date(Month/Year) DENNY unsure if she has her tubes or ovari es 1999 Tonsilectomy 1959
--- OUTSIDE RECORDS SUMMARY | 2025-01-03 12:33 | XMS_ITS | Clinical Summary ---
Author Organization [place] Address [address] [place] [id number] Care Team Providers Care Regulatory Affairs Specialist Name Role Phone Katy Hill MD Primary Care Provider [phone] Allergies Active Allergy Reactions Criticality Noted Date [...] ve Magnesium Hydroxide (DULCOLAX PO) Dulcolax Active [place]-3 Fatty Acids (FISH OIL PO) Active multivitamin [...] on file Legal Sex Female 3:25 AM WELFARE CASE WORKER Gender Identity Not on file Sexual Orientation Not on file Last Filed Vital Signs Vital Sign Reading Time Taken Comments Blood Pressure 135/84 04/19/2023 11:04 AM CDT Pulse 82 04/19/2023 11:04 AM CDT Temperature 36.7 C (98.1 F) 12/03/2004 7:06 PM WELFARE CASE WORKER Respiratory Rate - - Oxygen Saturation 96% 04/19/2023 11:04 AM CDT Inhaled Oxygen Concentration - - Weight 112.9 kg (249 lb) 01/08/2023 1:47 PM WELFARE CASE WORKER Height 177.8 cm (5' 10) 04/19/2023 11:04 AM CDT Body Mass Index 35.73 01/08/2023 1:47 PM WELFARE CASE WORKER Plan of Treatment Health Maintenance Due Date [...] SCREENING DIGITAL BILATERAL Routine 12/08/2023 1:01 PM WELFARE CASE WORKER Visit for screening mammogram from Last 3 Months or Most Recently Relevant to Health Maintenance Results * MA Screening Digital Bilateral (12/08/2023 1:01 PM WELFARE CASE WORKER) Anatomical Region Laterality Modality Breast Bilateral Mammography Impressions 12/10/2023 3:13 PM WELFARE CASE WORKER IMPRESSION: ACR BI-RADS Category 1: Negative BREAST CANCER SCREENING RECOMMENDATION: Routine yearly mammography beginning at age 40 or as discussed with your provider. The results and recommendations of this examination will be communicated to the patient. Charli Kaye MD Narrative 12/10/2023 3:13 PM WELFARE CASE WORKER BILATERAL FULL FIELD DIGITAL SCREENING MAMMOGRAM Performed [...] Billing Address Employer Related 1975 [address] [facility] [address] [place] [address] Care Teams Regulatory Affairs Specialist Relationship Specialty Start Date End Date Katy Hill MD [address] [place] [address] PCP - General Family Medicine 12/04/22
--- OUTSIDE RECORDS SUMMARY | 2025-01-03 12:33 | XMS_ITS | Clinical Summary ---
Author Organization [employer] [facility] Address [facility] [place] [address] Care Team Providers Care Department Administrator Name Role Phone Ade Louise NAIL TECHNICIAN TEACHER Unavailable [phone] [facility] Primary Care Provid er Allergies Active Allergy [...] Department Care Team Description 01/03/2025 Nurse Triage [facility] Centralized Nurse Triage Clinic, [facility] Head Injury 12/28/2024 1:30 PM ACADEMIC AFFAIRS ASSISTANT - 12/28/2024 11:59 PM ACADEMIC AFFAIRS ASSISTANT Hospital Encounter [facility] [place] [address] [place] [address] Zander Meade MD Martinez, Nathan M, PT 12/27/2024 6:25 PM ACADEMIC AFFAIRS ASSISTANT Office Visit [facility] [place] [address] [place] [phone] Latisha Lang MD Head Injury 12/27/2024 Travel 12/19/2024 1:20 PM ACADEMIC AFFAIRS ASSISTANT - 12/19/2024 11:59 PM ACADEMIC AFFAIRS ASSISTANT Hospital Encounter [facility] [place] [address] [place] [address] Zander Meade MD Martinez, Nathan M, PT 12/19/2024 Travel 12/13/2024 3:29 PM ACADEMIC AFFAIRS ASSISTANT - 12/13/2024 11:59 PM ACADEMIC AFFAIRS ASSISTANT Hospital Encounter [facility] [place] [address] [place] [address] Zander Meade MD Martinez, Nathan M, PT 12/13/2024 Travel 12/05/2024 1:10 PM ACADEMIC AFFAIRS ASSISTANT - 12/05/2024 11:59 PM ACADEMIC AFFAIRS ASSISTANT Hospital Encounter [facility] [place] [address] [place] [phone] Zander Meade MD Martinez, Nathan M, PT Chronic pain of left knee 12/05/2024 Refill [facility] [address] [place] [address] Hans Rojo, OD Refill Request ([facility]) 12/05/2024 Travel 12/02/2024 4:15 PM ACADEMIC AFFAIRS ASSISTANT Ancillary Procedure [facility] [id number] [place] [phone] 12/02/2024 Travel 11/27/2024 4:00 PM ACADEMIC AFFAIRS ASSISTANT Ancillary Procedure [facility] [address] [place] [address] 11/27/2024 3:30 PM ACADEMIC AFFAIRS ASSISTANT Office Visit [facility] [address] [place] [address] Zander Meade MD Musculoskeletal Problem (Follow-up LEFT Knee Injury DOI: 09/26/2024/Review X-Ray) 11/27/2024 Travel 11/16/2024 1:00 PM ACADEMIC AFFAIRS ASSISTANT Office Visit [facility] [address] [place] [address] Hans Rojo, OD Follow Up (4 Month IOP Ck) 11/16/2024 Travel 11/08/2024 11:00 AM ACADEMIC AFFAIRS ASSISTANT Procedure Only [facility] [address] [place] [address] Testing (Visual field and results) 11/08/2024 Travel 11/03/2024 1:00 PM ACADEMIC AFFAIRS ASSISTANT Office Visit [facility] [address] [place] [address] Zander Meade MD Establish Care (Establish Care with Dr Zander Meade) 11/03/2024 Travel 10/17/2024 11:30 AM ACADEMIC AFFAIRS ASSISTANT Office Visit [facility] [address] [place] [address] Arcelia Ha, DPM Foot Problem [...] Liver Genetic Other MGM: DM~PGM: DM ~Father: RI in mid 40s first dx, dec in 60s~Mother: melanoma dec in 50s of metastatic dz/MGM: DM~PGM: DM~Father: RI in mid 40s first dx, dec in [...] on file Legal Sex Female 5:29 AM ACADEMIC AFFAIRS ASSISTANT Gender Identity Not on file Sexual Orientation Not on file Obstetrics History Last Filed Vital Signs Vital Sign Reading Time Taken Comments Blood Pressure 135/69 12/27/2024 6:27 PM ACADEMIC AFFAIRS ASSISTANT Pulse 78 12/27/2024 6:27 PM ACADEMIC AFFAIRS ASSISTANT Temperature 36.6 C (97.9 F) 12/27/2024 6:27 PM ACADEMIC AFFAIRS ASSISTANT Respiratory Rate 14 12/27/2024 6:27 PM ACADEMIC AFFAIRS ASSISTANT Oxygen Saturation 97% 12/27/2024 6:27 PM ACADEMIC AFFAIRS ASSISTANT Inhaled Oxygen Concentration - - Weight 108.1 kg (238 lb 6.4 oz) 11/03/2024 1:07 PM ACADEMIC AFFAIRS ASSISTANT Height 172.7 cm (5' 8) 11/03/2024 1:07 PM ACADEMIC AFFAIRS ASSISTANT Body Mass Index 36.25 11/03/2024 1:07 PM ACADEMIC AFFAIRS ASSISTANT Plan of Treatment Upcoming Encounters Date Type Department Care Team (Late st Contact Info) Description 01/10/2025 12:45 PM CDT Appointment [facility] [place] [address] [place], [place] [phone] [place] [address] [place], [place] [phone] 01/16/2025 11:30 AM CDT Office Visit [facility] [address] [place] [phone] Arcelia Ha, DPM [address] [place] [address] 01/17/2025 12:45 PM CDT Appointment [facility] [place] [address] [place], [place] [phone] [place] [address] [place] [address] 01/24/2025 12:45 PM CDT Appointment [facility] [place] [address] [place], [place] [phone] [place] [address] [place] [phone] 02/01/2025 11:10 AM CDT Office Visit [facility] [address] [place] [address] Zander Meade MD [address] [place] [address] 03/15/2025 1:00 PM CDT Office Visit [facility] [address] [place] [address] [place] [address] [place] [address] Health Maintenance Due Date Last Done Comments [...] BRAIN ORBITS WWO Routine 12/02/2024 5:01 PM ACADEMIC AFFAIRS ASSISTANT Visual field defect of left eye XR KNEE 3 VIEWS LEFT Routine 11/27/2024 3:46 PM ACADEMIC AFFAIRS ASSISTANT Chronic pain of left knee XR MAMMO BILAT SCREENING Routine 05/05/2022 1:03 PM CDT Visit for screening mammogram LIPID PANEL Routine 09/22/2021 11:59 AM ACADEMIC AFFAIRS ASSISTANT Pure hypercholesterolemia XR DXA BONE DENSITY 2 SITES AXIAL Routine 09/12/2019 1:38 PM ACADEMIC AFFAIRS ASSISTANT Post-menopausal ANTI HCV Routine 06/16/2019 1:20 PM CDT Encounter for hepatitis C screening test for low risk patient COLONOSCOPY 11/02/2017 12:49 PM ACADEMIC AFFAIRS ASSISTANT from Last 3 Months or Most Recently Relevant to Health Maintenance Results * MR HEAD BRAIN ORBITS WWO (12/02/2024 5:01 PM ACADEMIC AFFAIRS ASSISTANT) Anatomical Region Laterality Modality HEAD Magnetic Resonan ce 12/02/2024 5:01 PM ACADEMIC AFFAIRS ASSISTANT Impressions 12/04/2024 9:27 AM ACADEMIC AFFAIRS ASSISTANT HEAD MRI: 1. No significant change since 12/12/2012. No findings to explain patient's symptoms or acute intracranial pathology. 2. Stable mild chronic small vessel ischemic disease and generalized brain parenchymal volume loss. ORBIT MRI: 1. Normal MRI of the orbits. Narrative 12/04/2024 9:27 AM ACADEMIC AFFAIRS ASSISTANT For Patients: As a result of the Century Cures Act, medical imaging exams and procedure reports are released immediately into your electronic medical record. You may view this report before your referring provider. If you have questions, please contact your health care provider. EXAM: MR HEAD BRAIN ORBITS WWO LOCATION: [facility] DATE: 12/02/2024 INDICATION: Visual Field Defect Of [...] care provider. EXAM: MR HEAD BRAIN ORBITS [facility] LOCATION: [facility] DATE: 12/02/2024 INDICATION: Visual Field Defect Of [...] KNEE 3 VIEWS LEFT (11/27/2024 3:46 PM ACADEMIC AFFAIRS ASSISTANT) Anatomical Region Laterality Modality KNEES, KNEE L Computed Radiogr aphy 11/28/2024 9:27 AM ACADEMIC AFFAIRS ASSISTANT Impressions 11/28/2024 9:27 AM ACADEMIC AFFAIRS ASSISTANT Osteoarthritis, as above Dictated by Jasson Barone MD @ 11/28/2024 9:27:09 AM (Electronically Signed) Narrative 11/28/2024 9:27 AM ACADEMIC AFFAIRS ASSISTANT For Patients: As a result of the [...] health care provider. XR MAMMO BILAT SCREENING [[id number]] CLINICAL HISTORY: This is an asymptomatic 66 y.o. patient. INDICATION FOR EXAM: Mammogram Screening. TECHNIQUE: CC & MLO views were obtained. This study was evaluated with the assistance of Computer-Aided Detection. COMPARISON FILM: Yes 09/18/19 [facility] 04/23/17 [facility] FINDINGS: The breasts have scattered areas of fibroglandular density. There are no dominant masses, suspicious micro calcifications or areas of architectural distortion. us Dom Roca MD MAMMO Final Resul t * (ABNORMAL) LIPID PANEL (09/22/2021 11:59 AM ACADEMIC AFFAIRS ASSISTANT) CHOLESTEROL,TOTAL 201(H) 100 - 199 mg/dL 09/22/2021 10:24 PM ACADEMIC AFFAIRS ASSISTANT [facility] TRIGLYCERIDES 212(H) <150 mg/dL 09/22/2021 10:24 PM ACADEMIC AFFAIRS ASSISTANT [facility] HDL CHOLESTEROL 49 >40 mg/dL 10:24 PM ACADEMIC AFFAIRS ASSISTANT [facility] NON-HDL CHOLESTEROL 152(H) <145 mg/dl 09/22/2021 10:24 PM ACADEMIC AFFAIRS ASSISTANT [facility] CHOL/HDL RATIO 4.10 <4.50 09/22/2021 10:24 PM ACADEMIC AFFAIRS ASSISTANT [facility] LDL CHOLESTEROL 110 <=130 mg/dL 09/22/2021 10:24 PM ACADEMIC AFFAIRS ASSISTANT [facility] VLDL CHOLESTEROL 42(H) <=30 mg/dL 09/22/2021 10:24 PM ACADEMIC AFFAIRS ASSISTANT [facility] PROVIDER ORDERED STATUS RANDOM 09/22/2021 10:24 PM ACADEMIC AFFAIRS ASSISTANT [facility] Blood BLOOD SPECIMEN / Unknown Butterfly / Unknown 09/22/2021 11:59 AM ACADEMIC AFFAIRS ASSISTANT 09/22/2021 11:59 AM ACADEMIC AFFAIRS ASSISTANT Sherlyn Weston MD CHEMISTRY Final Resul t [facility] [address] [place] [address], [place] * XR DXA BONE DENSITY 2 SITES AXIAL (09/12/2019 1:38 PM ACADEMIC AFFAIRS ASSISTANT) Anatomical Region Laterality Modality Spine, HIPS, HIPL, HIPR Other Narrative 09/13/2019 7:44 AM ACADEMIC AFFAIRS ASSISTANT Please see scanned document for results of this study. Sherlyn Weston MD DEXA Final Resul t * ANTI HCV (06/16/2019 1:20 PM CDT) HEPATITIS C ANTIBODY Non-React wilson Non-React wilson 06/16/2019 9:34 PM CDT [facility] Comment:Antibodies to HCV no t detected; does not exclude the possibility of exposure to HCV. Blood BLOOD SPECIMEN / Unknown Butterfly / Unknown 06/16/2019 1:20 PM CDT 06/16/2019 1:20 PM CDT us Sherlyn Weston MD SEND OUTS Final Resul t [facility] [address] [place] [address], [place] * COLONOSCOPY (11/02/2017 12:49 PM ACADEMIC AFFAIRS ASSISTANT) 11/02/2017 12:4 9 PM ACADEMIC AFFAIRS ASSISTANT Narrative Transcriptions Magdi Henry MD - 11/02/2017 [...] adequate candidate for conscious sedation. The [id number] was passed through the anus and advanced [...] 6:09 AM 10/27/2012 2:28 AM Care Teams Department Administrator Relationship Specialty Start Date End Date [address] [address] PCP - General 09/13/23 Aed Louise CNS Psychiatry 02/24/13
== END 2025-01-03 13:29 | disposition home or self-care (01) ==
PROVIDERS: Emergency Provider Family Medicine; PCP Family Medicine
DX: S09.90XA Unspecified injury of head, initial encounter (principal); M54.2 Cervicalgia; W19.XXXA Unspecified fall, initial encounter
CPT/HCPCS: 70450; 72125; 99283; 99284